=== PATIENT | female | born 1960 | race Caucasian/White ===

== ENCOUNTER → 2018-02-15 16:24 | Outpatient (CLI) | payer OTHER, SELFPAY ==
--- NOTE | 2018-02-15 16:29 | DI.RAD.S_ITS ---
PROCEDURE: XR HIP W PEL IF DONE LT 2V INDICATIONS: LUMBAGO WITH SCIATICA LEFT TECHNIQUE: AP pelvis with lateral view(s) of the left hip(s). COMPARISON: [facility], , XR LUMBAR SPINE 2-3V, 02/15/2018, 16:11. FINDINGS: Bones: No fractures or dislocations. Pelvic ring appears intact. No suspicious bony lesions. Minimal degenerative change involving the lower lumbar spine. Soft tissues: The visualized bowel gas pattern is normal. No suspicious soft tissue calcifications. IMPRESSION: Normal appearance of the hip joints bilaterally. Dictated by: Hugh Dong [facility] Interpreted: Mahesh Samaniego MD on 02/15/2018 at 16:47 Approved by: Mahesh Samaniego M.D. on 02/16/2018 at 8:11
--- NOTE | 2018-02-15 16:29 | DI.RAD.S_ITS ---
PROCEDURE: XR LUMBAR SPINE 2-3V INDICATIONS: LUMBAGO WITH SCIATICA LEFT TECHNIQUE: 3 views of the lumbar spine were acquired. COMPARISON: None. FINDINGS: Bones: 5 [id number] vertebrae are present. Trace spondylolisthesis L4-L5. Mild early multilevel disc degeneration lower lumbar spine facet joint arthropathy. No vertebral body compression fractures. No suspicious bony lesions. Soft tissues: Overlying bowel gas pattern is normal. No suspicious soft tissue calcifications. IMPRESSION: Mild multilevel degenerative change. Dictated by: Hugh Dong [facility] Interpreted: Mahesh Samaniego MD on 02/15/2018 at 16:46 Approved by: Mahesh Samaniego M.D. on 02/15/2018 at 16:48
== END ==
PROVIDERS: Family Provider Physician Assistant; PCP Physician Assistant; Visit Provider Physician Assistant
DX: M51.16 Intervertebral disc disorders with radiculopathy, lumbar region (principal)
CPT/HCPCS: 72100; 73502

== ENCOUNTER → 2018-03-04 14:24 | Outpatient (CLI) | payer OTHER, SELFPAY ==
--- NOTE | 2018-03-04 | DI.RAD.S_ITS ---
PROCEDURE: XR HAND RT 2V INDICATIONS: PAIN TECHNIQUE: 3 views of the hand(s) acquired. COMPARISON: [facility], HAND 3V RIGHT, 05/12/2008, 10:37. [facility], WRIST MINIMUM 3 VIEWS RIGHT, 05/27/2009, 13:18. FINDINGS: Bones: No fractures or dislocations. Carpal bones are normally aligned. No suspicious bony lesions. Mild degenerative joint disease at the fourth and fifth proximal interphalangeal joints and the fifth distal interphalangeal joint with joint space narrowing and osteophyte palpation. No bony erosions. Soft tissues: No suspicious soft tissue calcifications. IMPRESSION: Mild degenerative joint disease. No bony erosions. Dictated by: Jessi Nieves M.D. on 03/04/2018 at 15:31 Approved by: Jessi Nieves M.D. on 03/04/2018 at 15:33
--- NOTE | 2018-03-04 | DI.RAD.S_ITS ---
PROCEDURE: XR HAND LT 2V INDICATIONS: PAIN TECHNIQUE: 3 views of the hand(s) acquired. COMPARISON: [facility], , HAND 3V RIGHT, 05/12/2008, 10:37. [facility], , XR HAND RT 2V, 03/04/2018, 14:16. FINDINGS: Bones: No fractures or dislocations. Carpal bones are normally aligned. No suspicious bony lesions. There is mild to moderate degenerative joint disease with joint space narrowing and osteophyte formation involving multiple interphalangeal joints, most pronounced at the fifth proximal and distal interphalangeal joints. No bony erosions. Soft tissues: No suspicious soft tissue calcifications. IMPRESSION: Mild/moderate degenerative joint disease. No bony erosions. Dictated by: Jessi Nieves M.D. on 03/04/2018 at 15:28 Approved by: Jessi Nieves M.D. on 03/04/2018 at 15:31
[2018-03-06 11:32] LABS: CCP Antibody (IgG) < 16 Units (< 20)
[2018-03-06 16:24] LABS: Immunoglobulin A 72 mg/dL (81-463)
== END ==
PROVIDERS: Family Provider Physician Assistant; PCP Physician Assistant; Visit Provider Physician Assistant
DX: M13.0 Polyarthritis, unspecified (principal)
CPT/HCPCS: 36415; 73130; 82784; 83516

== ENCOUNTER → 2018-05-04 08:00 | Outpatient (CLI) | payer OTHER, SELFPAY ==
--- NOTE | 2018-05-04 | DI.US.S_ITS ---
PROCEDURE: US CAROTID DOPPLER BI INDICATIONS: STENOSIS OF CAROTID ARTERIES TECHNIQUE: Color and pulse Doppler interrogation was performed of both carotid systems, with image documentation and velocity measurements. COMPARISON: None. FINDINGS: Stenosis calculations are based on SRU (Society of Radi[employer] in Ultrasound) criteria. Right side: Brachial blood pressure: 134/82 mm Hg. Common carotid artery peak systolic velocity: 80 cm/sec. Internal carotid artery peak systolic velocity: 79 cm/sec. Internal carotid artery end diastolic velocity: 35 cm/sec. External carotid artery peak systolic velocity: 322 cm/sec. ICA/CCA peak systolic ratio: 1.0. Vera scale imaging description: Moderate scattered plaque. Percent internal carotid artery stenosis: Less than 50%. Vertebral artery: Flow direction is antegrade. Left side: Brachial blood pressure: 153/84 mm Hg. Common carotid artery peak systolic velocity: 100 cm/sec. Internal carotid artery peak systolic velocity: 82 cm/sec. Internal carotid artery end diastolic velocity: 40 cm/sec. External carotid artery peak systolic velocity: 82 cm/sec. ICA/CCA peak systolic ratio: 0.8. Vera scale imaging description: Mild scattered plaque. Percent internal carotid artery stenosis: Less than 50%. Vertebral artery: Flow direction is antegrade. IMPRESSION: Less than 50% bilateral internal carotid artery stenosis. Dictated by: Hugh Dong [facility] Interpreted: Romero Guzman MD on 05/04/2018 at 10:38 Approved by: Romero Guzman M.D. on 05/05/2018 at 17:24
== END ==
PROVIDERS: Family Provider Physician Assistant; PCP Physician Assistant; Visit Provider Student in an Organized Health Care Education/Training Program
DX: I65.23 Occlusion and stenosis of bilateral carotid arteries (principal)
CPT/HCPCS: 93880

== ENCOUNTER 2018-09-22 13:09 | Observation (INO) | payer OTHER, SELFPAY ==
[2018-09-22] VITALS (9 sets, daily range): BP systolic 132–164; BP diastolic 57–83; PULSE 71–88; RESP 12–19; TEMP 37.1; O2SAT 96–100; BMI 42.0
--- NOTE | 2018-09-22 13:15 | ED.CHESTPAIN ---
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 tracings: available for review Interpretation: Normal sinus rhythm rate [address] changes no T-wave inversions similar to previous EKG in 2015 [facility] Narrative Medical decision making narrative: I called and updated hospitalist on CT results. Patient is not having large vessel occlusion signs or symptoms of a CVA. She is not a tPA or thrombectomy candidate. She is here mostly for some chest discomfort. However head CT does show possible pontine infarct both noncontrast head CT and CTA. She also had some speech difficulty earlier in the day for brief period of time which is now resolved. Hospitalist agrees with observation. Discharge Plan Departure Patient Disposition: Admitted As Inpatient Clinical Impression: Acute chest wall pain, Brain TIA Discharge Date/Time: 09/23/18 00:16 Interventions: ED Discharge Assessment Last Done: 09/23/18 00:15 Admit Date/Time: 09/22/18 22:39 Admit Provider: Macario Weldon <Clotilde Odom DO - Last Filed: 09/23/18 00:52> Cosign ED Attending Davidature Attestation: I was immediately available in the department for consultation. Documentation has been reviewed. I agree with assessment and plan.
--- NOTE | 2018-09-22 13:22 | DI.RAD.S_ITS ---
PROCEDURE: XR CHEST 1V INDICATIONS: Chest pain TECHNIQUE: One view of the chest was acquired. COMPARISON: [facility], , XR CXR 2 VIEW, 01/30/2005, 9:21. FINDINGS: Surgical changes and devices: None. Lungs and pleura: Trace pulmonary radiopacities are present at the left lung base. The lungs are otherwise clear. Mediastinum: Mediastinal contours appear normal. Heart size is normal. Bones and chest wall: No suspicious bony lesions. Overlying soft tissues appear unremarkable. IMPRESSION: Trace left basilar pulmonary radiopacities. Differential considerations include atelectasis, aspiration, infection. Short interval followup is recommended with resolution of the patient's symptoms to ensure there is no underlying pulmonary pathology. Dictated by: Kandy Caballero M.D. on 09/22/2018 at 14:02 Approved by: Kandy Caballero M.D. on 09/22/2018 at 14:02
--- NOTE | 2018-09-22 14:05 | ED_ITS ---
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 follows: Prior ECG tracings: available for review Interpretation: Normal sinus rhythm rate [address] changes no T-wave inversions similar to previous EKG in 2015 [facility] Narrative Medical decision making narrative: I called and updated hospitalist on CT results. Patient is not having large vessel occlusion signs or symptoms of a CVA. She is not a tPA or thrombectomy candidate. She is here mostly for some chest discomfort. However head CT does show possible pontine infarct both noncontrast head CT and CTA. She also had some speech difficulty earlier in the day for brief period of time which is now resolved. Hospitalist agrees with observation. Discharge Plan Departure Patient Disposition: Admitted As Inpatient Clinical Impression: Acute chest wall pain, Brain TIA Discharge Date/Time: 09/23/18 00:16 Interventions: ED Discharge Assessment Last Done: 09/23/18 00:15 Admit Date/Time: 09/22/18 22:39 Admit Provider: Macario Weldon <Clotilde Odom DO - Last Filed: 09/23/18 00:52> Cosign ED Attending Davidature Attestation: I was immediately available in the department for consultation. Documentation has been reviewed. I agree with assessment and plan.
--- NOTE | 2018-09-22 14:33 | PC.NURSE ---
with u/s guided iv start
--- NOTE | 2018-09-22 14:34 | PC.NURSE ---
report while working this morning at 1030am, bending, developed sudden onset of left below the breast sharp pain, worsen with deep breathing reports left carotid 90% , taking aspirin at this time. denies long travel.
[2018-09-22 14:36] LABS: Add Manual Diff / Slide Review NO; Basophils Absolute Auto 0 /uL (0-100); Basophils Percent Auto 0.6 % (0-2); Eosinophils Absolute Auto 100 /uL (0-450); Eosinophils Percent Auto 1.4 % (2-4); Hematocrit 40.7 % (36-46); Hemoglobin 13.4 g/dL (12.0-16.0); Lymphocytes Absolute Auto 1700 /uL (1100-4500); Lymphocytes Percent Auto 24.2 % (25-40); Mean Corpuscular Hemoglobin 28.6 PG (26-34); Mean Corpuscular Volume 86.8 fL (80-100); Monocytes Absolute Auto 500 /uL (0-900); Monocytes Percent Auto 7.8 % (3-14); Neutrophils Absolute Auto 4600 /uL (1500-7000); Platelet Count 241 X10^3/uL (150-400); Red Blood Cell Count 4.69 X10^6/uL (4.0-5.2); Red Cell Distribution Width 13.3 % (11.6-14.8)
[2018-09-22 14:50] LABS: D Dimer 241 ng/mL (<230)
[2018-09-22 14:55] LABS: Alanine Aminotransferase 32 IU/L (9-52); Albumin 4.7 g/dL (3.5-5.0); Albumin Globulin Ratio 1.6 (1.0-2.8); Alkaline Phosphatase 67 U/L (38-126); Aspartate Aminotransferase 28 IU/L (14-36); BUN Creatinine Ratio 37.1 (6-22); Bilirubin Total 0.4 mg/dL (0.2-1.3); Blood Urea Nitrogen 26 mg/dL (7-17); Calcium 9.6 mg/dL (8.4-10.2); Carbon Dioxide 29 mmol/L (22-32); Chloride 102 mmol/L (98-107); Creatine Kinase 145 U/L (30-135); Estimated Glomerular Filt Rate > 60.0 mL/min (>60); Globulin 2.9 g/dL (1.7-4.1); Glucose 114 mg/dL (70-100); HEMOLYSIS 19 (0-50); Lipase 45 U/L (23-300); Potassium 4.5 mmol/L (3.4-5.1); Sodium 140 mmol/L (137-145); Total Protein 7.6 g/dL (6.3-8.2)
[2018-09-22 15:08] LABS: Troponin I < 0.012 ng/mL (0.01-0.034)
[2018-09-22 15:10] LABS: CKMB % Relative Index 1.8 % (1.5-5.0); Creatine Kinase MB 2.66 ng/mL (<2.37)
[2018-09-22 17:13] LABS: Troponin I < 0.012 ng/mL (0.01-0.034)
--- NOTE | 2018-09-22 17:35 | DI.CT.S_ITS ---
PROCEDURE: CT HEAD/BRAIN WO CON INDICATIONS: Complaint of difficulty forming words earlier today TECHNIQUE: Noncontrast 4.5 mm thick angled axial sections acquired from the foramen magnum to the vertex, with coronal and sagittal reformats. For radiation dose reduction, the following was used: automated exposure control, adjustment of mA and/or kV according to patient size. COMPARISON: [facility], CT, IVP (ABD & PEL WWO CONTRAST), 11/02/2012, 9:52. FINDINGS: Image quality: Excellent. CSF spaces: Basal cisterns are patent. No extra-axial fluid collections. Ventricles are normal in size and shape. Brain: No midline shift. No intracranial masses or hemorrhage. There is focal bandlike hypoattenuation of the sergey. Vera-white matter interface is otherwise normal. Intracranial vascular calcifications are noted. Skull and face: Calvarium and visualized facial bones are intact. There is a possible 1.8 cm right frontal soft tissue fat-attenuation mass, which may represent a lipoma. Sinuses: Visualized sinuses and mastoids are clear. IMPRESSION: Bandlike hypoattenuation of the sergey, which may be artifactual secondary to streak artifact from adjacent bony structures versus a pontine infarct. Clinical correlation recommended. Consider followup brain MRI if there is continued clinical concern. Dictated by: Mateo Owen M.D. on 09/22/2018 at 19:08 Approved by: Mateo Owen M.D. on 09/22/2018 at 19:16
--- NOTE | 2018-09-22 18:08 | PC.NURSE ---
fast neuro exam negative at this time
--- NOTE | 2018-09-22 20:02 | DI.CT.S_ITS ---
PROCEDURE: CT ANGIO HEAD AND NECK INDICATIONS: 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 After the administration of intravenous contrast, 1 mm thick sections acquired from the aortic arch through the Resighini of Valentine. Post-contrast 4.5 mm thick sections then re-acquired from the foramen magnum to the vertex. 3-dimensional mbwzshf-rklhwzzgm-dhlqyrtwlo (MIP) and/or volume rendering reformats were acquired of the central intracranial vasculature and neck separately. COMPARISON: [facility], CT, CT HEAD/BRAIN WO CON, 09/22/2018, 18:05. [facility], CT, IVP (ABD & PEL WWO CONTRAST), 11/02/2012, 9:52. FINDINGS: Image quality: Excellent. BRAIN: CSF spaces: Ventricles are normal in size and shape. Basal cisterns are patent. No extra-axial fluid collections. Brain: No midline shift. No intracranial bleeds or masses. There is focal bandlike hypoattenuation of the sergey. Intracranial vascular calcifications are noted. Skull and face: Calvarium and facial bones appear intact, without suspicious lesions. Orbits appear normal. There is a possible 1.8 cm right frontal soft tissue fat-attenuation mass, which may represent a lipoma. Sinuses: Sinuses and mastoids are clear. HEAD CT ANGIOGRAPHY: Anterior circulation: Intracranial internal carotid arteries are normal in size and flow. The flow within the paired anterior cerebral arteries is normal and symmetric. The flow within the middle cerebral arteries is normal and symmetric. The anterior communicating artery is seen. No aneurysms are seen. Posterior circulation: Visualized portions of the vertebral arteries demonstrate normal caliber, and join to form a normal appearing basilar artery. No aneurysms are seen. There is poor opacification of the origin of the right posterior cerebral artery from the basilar artery, without definite communication. 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 The origins of the common carotid arteries appear patent. The common carotid arteries demonstrate normal caliber and courses. The bifurcation regions are both patent, with mild calcified and noncalcified plaque noted bilaterally. The internal carotid arteries demonstrate normal calibers and courses. Posterior circulation: The origins of the vertebral arteries both appear widely patent. The more superior extracranial portions of both vertebral arteries also demonstrate normal courses and calibers. They join to form a normal appearing basilar artery. Soft tissues: 4 mm noncalcified pulmonary nodule in the anterior right upper lobe noted. Bones: There are mild multilevel degenerative changes of the cervical spine. There is straightening of the normal cervical lordosis. 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 Bandlike hypoattenuation of the sergey, which may be artifactual secondary to streak artifact from adjacent bony structures versus a pontine infarct. Clinical correlation recommended. Consider followup brain MRI if there is continued clinical concern. 2. 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 3. Mild calcified and noncalcified plaque of the carotid bifurcations bilaterally. The bilateral cervical carotid and vertebral arteries appear patent. 4. Poor opacification of the origin of the right posterior cerebral artery from the basilar artery, without definite communication. This may be congenital/developmental with the right posterior cerebral artery receiving flow from the right posterior communicating artery, or represent an age-indeterminate occlusion. 5. 4 mm noncalcified pulmonary nodule of the anterior right upper lobe. Consider followup CT of the chest if the patient has a history of risk factors for development of lung malignancy such as a history of smoking. Any quantitative measurements of stenosis were performed using NASCET criteria. Dictated by: Mateo Owen M.D. on 09/22/2018 at 22:01 Approved by: Mateo Owen M.D. on 09/22/2018 at 22:24
--- NOTE | 2018-09-22 23:27 | P.HP_ITS ---
History of Present Illness Date Patient Seen: 09/22/18 Time Patient Seen: 23:27 Chief complaint: Chest Pain Narrative: The patient is a 58-year-old female who presented to the ED on 09/22/2018 at approximately 1314 with sudden onset of chest pain. Symptom onset is acute, initially noted in the 1000 hour. At time of the event patient was at work. 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 Time of the event she was moving tables and are changing the trash. Patient does not note this to be a particularly strenuous activity. Pain is localized to the left aspect of the chest and was described as sharp and stabbing. It did not radiate to the back, extremities, neck or jaw. In the following hour the pain has worsened to the degree that was debilitating to the patient and she was not able to continue working. She felt short of breath at rest and with exertion. The pain was worsened with deep inspiration. There was some degree of disorientation. There was no change in vision, palpitations , dizziness, lightheadedness, abdominal pain, nausea, vomiting or diaphoresis. Patient then was evaluated by the school is a nurse, she recalls two BP readings : 170/? and 220/114. At that point EMS was summoned and patient was transferred to the ED for further evaluation. It is of importance to note, that earlier in the day at approximately 0800 the patient experienced an episode of dysarthria / slurred speech. It is not clear how long the episode lasted, but at least 1-2 minutes as patient decided not to talk altogether thereafter. Patient notes experiencing similar event in April of 2018. She reports having imaging of her carotid arteries and notes being told of a 90% stenosis of left ICA and 50% stenosis of the ICA. At that time she was placed on aspirin and statin therapy with which she has been compliant. Known to have history of HTN with reported SBP range in the 130/80 mmHg at home. Admits to snoring, but no prior evaluation for SONIA. In the past has had a stress test (30 yrs ago, for reasons she does not recall). No h/o an echocardiogram. Denies h/o heart disease, lung disease, stroke, or blood clots. 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 Tobacco dependence, currently less than half pack week. Denies alcohol and recreational drug use. Lives independently. Has 2 daughters. ED Work-UP CT head: band-like attenuation of the sergey, which may be artifactual secondary to streak artifact from adjacent bony structures versus a pontine infarct. CTA Head / Neck: - Bandlike hypoattenuation of the sergey, which may be artifactual secondary to streak artifact from adjacent bony structures versus a pontine infarct. Clinical correlation recommended. Consider followup brain MRI if there is continued clinical concern. 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 - Mild calcified and noncalcified plaque of the carotid bifurcations bilaterally. The bilateral cervical carotid and vertebral arteries appear patent. - Poor opacification of the origin of the right posterior cerebral artery from the basilar artery, without definite communication. This may be congenital/ developmental with the right posterior cerebral artery receiving flow from the right posterior communicating artery, or represent an age-indeterminate occlusion. - 4 mm non-calcified pulmonary nodule of the anterior right upper lobe. Consider followup CT of the chest if the patient has a history of risk factors for development of lung malignancy such as a history of smoking. Patient History Family & Social History Family History: Reviewed 09/23/18 by ASHLEY Jenkins Tobacco & Substance use: Smoking Status Current some day smoker Substance Use Type does not use Meds Home Medications Medication Instructions Recorded Confirmed Type bupropion HCl 450 mg PO QAM #0 03/14/10 09/22/18 History fluoxetine 60 mg PO DAILY #0 03/14/10 09/22/18 History lisinopril 10 mg PO DAILY #0 03/14/10 09/22/18 History omeprazole 20 mg PO DAILY #0 03/14/10 09/22/18 History albuterol sulfate [ProAir HFA] 1 puff INHALATION PRN PRN 09/22/18 09/22/18 History beclomethasone dipropionate [Qvar 1 puff INHALATION DIRECTED 09/22/18 History RediHaler] cyclobenzaprine 10 mg PO Q8H 09/22/18 09/22/18 History fexofenadine 180 mg PO DAILY 09/22/18 09/22/18 History fluticasone 1 spray INTRANASAL Q4-6H 09/22/18 09/22/18 History gabapentin 300 mg PO TID 09/22/18 09/22/18 History hydrocodone-acetaminophen 1 tab PO Q6H PRN 09/22/18 09/22/18 History lorazepam 0.5 - 2 mg PO QPM PRN 09/22/18 09/22/18 History meloxicam 15 mg PO DAILY PRN 09/22/18 09/22/18 History trazodone 50 - 100 mg PO BEDTIME PRN 09/22/18 09/22/18 History Allergies Allergy/AdvReac Type Severity Reaction Status Date / Time No Known Allergies Allergy Uncoded 12/16/17 12:16 Review of Systems Review of Systems All systems reviewed & are unremarkable except as noted in HPI and below Exam Vital Signs (past 8 hours): - 09/22/18 15:30 09/22/18 17:08 09/22/18 19:10 Pulse Rate 78 75 74 Respiratory Rate 16 19 17 Blood Pressure [Right Arm] 146/57 H 141/57 H 152/60 H Pulse Oximetry 96 97 97 09/22/18 20:00 09/22/18 21:56 09/22/18 23:05 Pulse Rate 78 74 71 Respiratory Rate 15 16 17 Blood Pressure [Right Arm] 154/65 H 146/59 H 133/67 Pulse Oximetry 100 99 Oxygen Delivery Method Room Air Narrative Exam Narrative: Constitutional: NAD Neurologic: AOx3, no focal neurological deficits. NIHSS 0 Head: NC, AT Eyes: PERRL, EOMI, no icterus Ears: external ears normal Nose: external nose normal, no rhinorrhea or epistaxis Throat: MMM, oropharynx w/o exudate Neck: no masses, lymphadenopathy, or JVD Chest / Respiratory: equal chest rise, unlabored respiratory effort, no tachypnea, diminished bases Heart / CV: S1S2, no murmur Abdomen / GI: round, central obesity, NT, ND, + BS, no organomegaly : no suprapubic tenderness, no CVA Peripheral / Vascular: warm to touch, DP and PT pulses palpable, no edema Musc: full ROM of upper and lower extremities, adequate muscle tone and bulk Skin: no ecchymosis or suspicious lesions / ulcers Objective Labs Result Diagrams: 09/22/18 14:25 09/23/18 03:22 Labs: Laboratory Results - last 24 hr 09/22/18 09/22/18 09/22/18 14:25 14:25 14:25 WBC 7.0 RBC 4.69 Hgb 13.4 Hct 40.7 MCV 86.8 MCH 28.6 MCHC 33.0 RDW 13.3 Plt Count 241 Neut % (Auto) 66.0 Lymph % (Auto) 24.2 L Barber % (Auto) 7.8 Eos % (Auto) 1.4 L Baso % (Auto) 0.6 Neut # (Auto) 4600 Lymph # (Auto) 1700 Barber # (Auto) 500 Eos # (Auto) 100 Baso # (Auto) 0 D-Dimer 241 H Sodium 140 Potassium 4.5 Chloride 102 Carbon Dioxide 29 BUN 26 H Creatinine 0.70 Estimated GFR > 60.0 BUN/Creatinine Ratio 37.1 H Glucose 114 H Calcium 9.6 Total Bilirubin 0.4 AST 28 ALT 32 Alkaline Phosphatase 67 Total Creatine Kinase 145 H CK-MB (CK-2) 2.66 H CK-MB (CK-2) Rel Index 1.8 Troponin I < 0.012 Total Protein 7.6 Albumin 4.7 Globulin 2.9 Albumin/Globulin Ratio 1.6 Lipase 45 09/22/18 16:39 WBC RBC Hgb Hct MCV MCH MCHC RDW Plt Count Neut % (Auto) Lymph % (Auto) Barber % (Auto) Eos % (Auto) Baso % (Auto) Neut # (Auto) Lymph # (Auto) Barber # (Auto) Eos # (Auto) Baso # (Auto) D-Dimer Sodium Potassium Chloride Carbon Dioxide BUN Creatinine Estimated GFR BUN/Creatinine Ratio Glucose Calcium Total Bilirubin AST ALT Alkaline Phosphatase Total Creatine Kinase CK-MB (CK-2) CK-MB (CK-2) Rel Index Troponin I < 0.012 Total Protein Albumin Globulin Albumin/Globulin Ratio Lipase Assessment & Plan Plan: Assessment/Plan Narrative: TIA Suspected in the setting of hypertensive urgency vs. carotid artery disease CT Head: band-like hypo-attenuation of the sergey, which may be artefactual secondary to streak artifact from adjacent bony structures vs. a pontine infarct. Clinical correlation recommended. Consider follow-up brain MRI if there is continued clinical concern. - NIHSS QShift - MR Stroke Protocol for MRI of head in am - Neuro checks per protocol - Echo w/ bubble study in am - Passed swallow study in ED, may advance to cardiac diet - Risk Stratify: A1C, FLP (goal LDL < 70) - ASA 324 mg now, then 81 mg QD - Stroke Education Acute Chest Pain RF: HTN, morbid obesity (BMI 40.9), increased age, smoking, and FHx of heart disease EKG non-ischemic. Trop 0.012, CK-MB 2.66 - Tele monitoring - Continue trending trop x3 - Risk Stratify: HLD, A1C - Echo in am - Patient would benefit from an outpatient stress test - No NSAIDS, hold [employer] meloxicam Hypertension BP elevated on admission. Patient notes to be well controlled in ED. - Trend BP - SBP goal < 130 and DBP goal < 90 - Resume [employer]ACHINE [employer] anti-hypertensive, lisinopril - Patient would benefit from outpatient SONIA evaluation Abnormal CXR CXR w/ non-specific findings of trace left basilar pulmonary opacities. In the setting of hypertensive urgency, neurological symptoms, CP, pleurisy, mildly elevated D-Dimer and CK-MB no tachycardia, hypotension, syncope, JVD, hemoptysis, unilateral leg swelling / pain No prior h/o PE/DVT. No recent trauma or surgery. Not on HRT. No personal or family h/o cancer. DDx of pulmonary embolism RF: smoking, morbid obesity, increased age Well?s Criteria for PE, score 3 (PE is #1 dx or equally likely), at moderate risk for PE PERC Rule, positive / score 1 (age), cannot r/o PE - Consider CTA of chest to r/o PE - Echo, already ordered will help to evaluate for RV dysfunction Right upper lobe pulmonary nodule, noncalcified, incidental finding Patient has a history tobacco dependence. Current some day smoker. - Consider CT of the chest to rule out underlying malignancy Carotid Artery Stenosis - CTA Head / Neck pending, to be reviewed - Continue w/ aggressive risk factor modification Tobacco Dependence - Nicotine patch - Smoking cessation education Anxiety / Depression, controlled - Resume [employer] buprion, fluoxetine, and trazadone Full code. Patient does not have an advanced directive. Designates daughters as surrogate decision makers in an event patient is unable to make decisions on her own.
[2018-09-23] VITALS (10 sets, daily range): BP systolic 131–155; BP diastolic 54–94; PULSE 68–81; RESP 15–18; TEMP 36.4–36.8; O2SAT 95–99; BMI 40.9
--- NOTE | 2018-09-23 | DI.ECHO.S_ITS ---
[facility]---------+ [facility] +---------+ : : [address] : : [place], [place] : : : : [id number] : : : : Phone: [phone] Echocardiogram Report + + :Name: PARAMJIT OGLESBY Study Date: 09/23/2018 Height: 62 in : :[facility] Weight: 230 lb: : Gender: Female BSA: 2.0 m2 : :: 1960 Age: 58 yrs : :Reason For Study: TIA : :Ordering Physician: Aden : :Hospitalist Performed By: Josy Walton : :Referring: MARGARITA CHILDS : + + Interpretation Summary The study quality was technically difficult. The ejection fraction is estimated to be 60-65%. There are no obvious focal wall motion abnormalities noted but poor endocardial definition reduces the sensitivity for the detection of such. No obvious bubble contrast evidence for shunt. (TDS) There is no significant valvular heart disease. Procedure: A two-dimensional transthoracic echocardiogram with color flow and Doppler was performed. The patient had an echocardiogram, but there is no comparison study available. A saline contrast injection was performed to assess for cardiac shunting. The study quality was technically difficult. The patient was in normal sinus rhythm during the exam. Left Ventricle: The left ventricle is normal in size, wall thickness, and systolic function without any focal wall motion abnormalities. There is no ventricular septal defect visualized. The ejection fraction is estimated to be 60-65%. There are no obvious focal wall motion abnormalities noted but poor endocardial definition reduces the sensitivity for the detection of such. Diastolic parameters suggest a relaxation abnormality of the left ventricle, consistent with probable normal filling pressures. Right Ventricle: The right ventricle grossly appears normal in size with probable normal systolic function. Atria: Both atria are normal in size. There is no Doppler evidence for an interatrial shunt. No obvious bubble contrast evidence for shunt.TDS. Mitral Valve: The mitral valve is normal in structure and function. There is trace mitral regurgitation. Aortic Valve: The aortic valve is trileaflet. The aortic valve opens well. No aortic regurgitation is present. Tricuspid Valve: There is a trace or physiologic amount of tricuspid regurgitation. Right ventricular systolic pressure is estimated to be 18 mmHg plus the clinically estimated CVP which cannot be estimated on this exam. Pulmonic Valve: The pulmonic valve is not well visualized. Great Vessels: The aortic root is normal size. The ascending aorta is normal in size. The aortic arch is normal in size. The inferior vena cava was not visualized. Pericardium/ Pleura There is no pericardial effusion. MMode/2D Measurements & Calculations LVIDd: 4.1 cm LVOT diam: 1.9 cm LVIDs: 2.6 cm Ao root diam: 2.5 cm FS: 36.4 % asc Aorta Diam: 2.8 cm EPSS: 0.32 cm Ao Arch Diam (Prox Trans): 2.6 cm IVSd: 0.90 cm LVPWd: 1.1 cm LV shultz. diameter/BSA (cm/m^2): 2.0 LV sys. diameter/BSA (cm/m^2): 1.3 LA dimension: 5.1 cm RA long axis: 4.3 cm LA A2 area: 19.2 cm2 RA area: 14.9 cm2 LA A4 area: 17.8 cm2 RA vol: 43.8 ml LA length (vol): 5.1 cm RA : 21.6 ml/m2 LA vol: 57.0 ml LA vol index: 28.1 ml/m2 Doppler Measurements & Calculations Ao V2 max: 194.3 cm/sec LVOT Max Manish: 134.0 cm/sec Ao V2 mean: 111.2 cm/sec LV V1 max P.2 mmHg Ao max P.1 mmHg LV V1 VTI: 27.8 cm Ao mean P.2 mmHg LUISA(I,D): 2.4 cm2 Ao V2 VTI: 35.1 cm LUISA(V,D): 2.1 cm2 sev ratio: 0.79 LUISA indexed to BSA (cm^2/m^2): 1.2 MV E max manish: 59.9 cm/sec TR max manish: 211.7 cm/sec MV A max manish: 88.9 cm/sec TR max P.9 mmHg MV E/A: 0.67 PA V2 max: 90.7 cm/sec Med Peak E' Manish: 8.1 cm/sec PA V2 mean: 67.6 cm/sec E/E' med: 7.4 PA mean P.0 mmHg Lat Peak E' Manish: 10.7 cm/sec PA Accel Time: 0.08 sec E/E' lat: 5.6 E/e' average: 6.5 MV dec time: 0.24 sec MV P1/2t: 69.8 msec MV P1/2t max manish: 59.6 cm/sec SV(LVOT): 82.7 ml MVA(P1/2t): 3.2 cm2 Reading Physician:09:59 AM
--- NOTE | 2018-09-23 | DI.MRI.S_ITS ---
PROCEDURE: MR STROKE Pre- and post-contrast brain MRI, non-contrast brain MR angiogram, pre- and postcontrast neck MR angiogram INDICATIONS: Neuro symptoms. Speech difficulties TECHNIQUE: Brain: Noncontrast axial T1 spin echo, axial T2 fast spin echo, sagittal and axial FLAIR, coronal T2 fast spin echo, axial gradient echo, axial diffusion and ADC through the brain. After the administration of contrast, axial 3D VIBE of the cranial vasculature and brain. Brain MRA: Non-contrast 3-D time of flight MR angiogram, with multiple wzyphvc-gcqlyovdv-afojejuuyj (MIP) reformats performed. Neck MRA: Axial and sagittal TruFISP through the neck. Coronal dynamic MR angiogram during administration of contrast in the arterial and venous phases, with 3-dimenstional ouzbnva-urqrmhzwc-hyimuxubok (MIP) reformats constructed from subtraction images. COMPARISON: [facility], CT, CT HEAD/BRAIN WO CON, 09/22/2018, 18:05. [facility], CT, CT ANGIO HEAD AND NECK, 09/22/2018, 20:50. FINDINGS: Image quality: Excellent. BRAIN: CSF spaces: Ventricles are normal in size and shape. Basal cisterns are patent. No extra-axial fluid collections. Brain: No intracranial bleeds or mass effects. Vera-white matter interface is normal. Diffusion weighted images show no acute ischemic insults. Brainstem appears normal. Normal intravascular flow voids are present. Minimal periventricular and subcortical white matter chronic microvascular ischemic changes of aging. No GRE weighted abnormalities identified in the brain parenchyma. No abnormal intracranial enhancement. Skull and face: Calvarial marrow signal is normal. Orbits appear normal. Sinuses: Sinuses and mastoids are clear. BRAIN MR ANGIOGRAM: Anterior circulation: Intracranial internal carotid arteries are normal in enhancement. Mild atherosclerotic irregularity noted in the cavernous segments of the internal carotid arteries bilaterally with mild multifocal stenoses. The flow within the paired anterior cerebral arteries is normal and symmetric. The flow within the middle cerebral arteries is normal and symmetric. The anterior communicating artery is seen. No stenoses, occlusions, or aneurysms. Posterior circulation: The visualized portions of the vertebral arteries demonstrate normal caliber, and join to form a normal appearing basilar artery. The flow within the posterior cerebral arteries is normal and symmetric. The posterior cerebral arteries have origins which is a congenital anatomic variant. No stenoses, occlusions, or aneurysms. NECK MR ANGIOGRAM: Carotids: Great vessels demonstrate bovine variant anatomy as they arise from the aortic arch. The origins of the common carotid arteries appear patent. The calibers and courses of both common carotid arteries are normal. Minimal atherosclerotic irregularity noted in the origins of the internal carotid arteries bilaterally which does not cause measurable stenosis. Posterior circulation: The origins of the vertebral arteries appear patent. More superior portions of both vertebral arteries demonstrate normal course and caliber, and join to form a normal appearing basilar artery. Miscellaneous: Subclavian arteries appear patent. Pre-contrast images through the neck show no soft tissue abnormalities. IMPRESSION: BRAIN MRI: 1. No acute intracranial disease process. 2. No areas of acute or chronic infarction. 3. No abnormal intracranial mass or or suspicious postcontrast enhancement. 4. Minimal periventricular and subcortical white matter chronic microvascular ischemic changes. BRAIN MR ANGIOGRAM: 1. Mild atherosclerotic irregularity involving the cavernous segments of the internal carotid arteries bilaterally causing mild multifocal stenoses. 2. Otherwise, normal MR angiogram of the head with no hemodynamically significant vascular stenosis or large vessel occlusion. NECK MR ANGIOGRAM: 1. Minimal atherosclerotic irregularity involving the origins of the internal carotid arteries without visible stenosis. 2. Vertebral arteries are fully patent. Dictated by: Jennifer Baker MD, PhD on 09/23/2018 at 15:41 Approved by: Jennifer Baker MD, PhD on 09/23/2018 at 15:56
--- NOTE | 2018-09-23 | DI.US.S_ITS ---
PROCEDURE: US PERIPH VENOUS LOW EXTREM LT INDICATIONS: left calf pain, CVA, CP TECHNIQUE: Real-time imaging, as well as color and pulse Doppler interrogation, were performed of the lower extremity deep veins from the inguinal ligament to the popliteal fossa. COMPARISON: [facility], , US PERIPHERAL VENOUS LOWER EXT LT, 03/30/2000, 9:55. FINDINGS: The deep veins are normally compressible, and free of intraluminal thrombus. Color and pulse Doppler demonstrate normal phasic intraluminal flow. There is normal augmentation response to distal compression maneuver. IMPRESSION: Negative for deep venous thrombosis. Dictated by: Jadiel Zuñiga M.D. on 09/23/2018 at 15:49 Approved by: Jadiel Zuñiga M.D. on 09/23/2018 at 15:49
[2018-09-23] MEDS: SODIUM CHLORIDE 0.9% 1,000 ML 75 ML IV ×2 (00:54→14:35)
[2018-09-23] MEDS: ASPIRIN EC 325 MG TABLET PO (00:57)
[2018-09-23 01:03] LABS: B Type Natriuretic Peptide < 100 (<100)
[2018-09-23 01:13] LABS: Troponin I < 0.012 ng/mL (0.01-0.034)
--- NOTE | 2018-09-23 01:25 | PC.ADMIT ---
[email or web address] [facility] Admission Note: 0005 Patient admitted to room 216 from ER per stretcher but walked from stretcher to bed. Is alert and oriented with no neurologic deficits; NIH 0. Breath sounds CTA with RA sat of 99%. HRR. Denies nausea. BT present and abdomen is soft. Denies dysuria, frequency, urgency or incontinence. Denies pain at present time. Ambulates independently and is steady on feet. Old bruises noted on bilateral LE. Dull red discolored skin in abdominal pannus. No open, red or rashy areas noted. Patient oriented to room and bed controls. Questions asked/answered. Discussed current plan of care for this shift. The patient,Adri George,58 y/o, was given written information regarding hospital policies, unit procedures and contact persons. Patient's smoking status: Current some day smoker. Vital Signs - 8 hr 09/22/18 19:10 09/22/18 20:00 09/22/18 21:56 Pulse Rate 74 78 74 Respiratory Rate 17 15 16 Blood Pressure Blood Pressure [Right Arm] 152/60 H 154/65 H 146/59 H Pulse Oximetry 97 100 09/22/18 23:05 09/23/18 00:15 Pulse Rate 71 71 Respiratory Rate 17 16 Blood Pressure 139/54 L Blood Pressure [Right Arm] 133/67 Pulse Oximetry 99 97
[2018-09-23 04:04] LABS: Prothrombin Time 11.5 SECONDS (10.1-12.7)
[2018-09-23 04:06] LABS: PTT Partial Thromboplastin Tim 29 SECONDS (26.4-36.2)
[2018-09-23 04:10] LABS: BUN Creatinine Ratio 22.5 (6-22); Blood Urea Nitrogen 18 mg/dL (7-17); Calcium 9.5 mg/dL (8.4-10.2); Carbon Dioxide 28 mmol/L (22-32); Chloride 103 mmol/L (98-107); Cholesterol 163 mg/dL (140-199); Estimated Glomerular Filt Rate > 60.0 mL/min (>60); Glucose 129 mg/dL (70-100); HDL Cholesterol 60 mg/dL (40-60); HEMOLYSIS < 15 (0-50); LDL Cholesterol Calculated 87 mg/dL (<100); Magnesium 2.1 mg/dL (1.6-2.3); Potassium 3.7 mmol/L (3.4-5.1); Sodium 141 mmol/L (137-145); Triglycerides 82 mg/dL (35-150)
[2018-09-23 04:24] LABS: Troponin I < 0.012 ng/mL (0.01-0.034)
[2018-09-23 04:42] LABS: Hemoglobin A1C% w Est Avg Glu 5.7 % (4.0-6.0)
[2018-09-23 05:50] LABS: Thyroid Stimulating Hormone 2.02 uIU/mL (0.47-4.68)
[2018-09-23] MEDS: PANTOPRAZOLE 20 MG TABLET PO (06:16)
[2018-09-23] MEDS: ACETAMINOPHEN 325 MG TABLET 650 MG PO (08:22)
[2018-09-23] MEDS: BECLOMETHASONE 40 MCG INH 10.6 GM 1 PUFF INH ×2 (09:07→18:04)
[2018-09-23] MEDS: LISINOPRIL 10 MG TABLET PO (09:56)
[2018-09-23] MEDS: LORATADINE 10 MG TABLET PO (09:56)
--- NOTE | 2018-09-23 13:26 | OT.IP.TRT ---
Occupational Therapy Treatment Note M2 OT-IP Current Condition Start: 09/23/18 13:03 Freq: Status: Active Protocol: Document 09/23/18 13:04 [facility] (Rec: 09/23/18 13:26 [facility] [id number]) Occupational Therapy Current Condition Current Condition Evaluation Date 09/23/18 Treatment Diagnosis Chest Pain Diagnosis Onset Date 09/22/18 M3 OT- IP Subjective and Pain Start: 09/23/18 13:03 Freq: Status: Active Protocol: Document 09/23/18 13:04 [facility] (Rec: 09/23/18 13:26 [facility] [id number]) OT- Subjective Occupational Therapy Visit Type Type Initial Evaluation Visit Start Time 11:25 Visit Stop Time 12:00 Total Visit Minutes 35 Occupational Therapy Visit Comments Patient Comments Pt wanting to go home after all medical testing done, states sister can come and take her home. OT Pain Assessment Pain When Pain Assessed At Rest Pain Present Pain Present Denied Pain M4 OT- IP ADL's Start: 09/23/18 13:03 Freq: Status: Active Protocol: Document 09/23/18 13:04 [facility] (Rec: 09/23/18 13:26 [facility] [id number]) OT EHB-Vbha-Dmqtvam Comments OT Self-Feeding Comments Pt states was independent and did not have any trouble with eating. OT ADL-Toileting General Evaluation Toileting Ability Independent Comments OT Toileting Comments Pt states has been been getting in and out of the bathroom on her own. M5 OT- IP IADL's Start: 09/23/18 13:03 Freq: Status: Active Protocol: Document 09/23/18 13:04 [facility] (Rec: 09/23/18 13:26 [facility] [id number]) OT-Instrumental Activities of Daily Living Home Safety Awareness Ability to Problem Solve Emergency Able to Problem Solve Situations Medication Management Medication Management Comments Pt states has pill organizer but at times forgets to take her medication until later in the evening per MRI SPECIALIST. M6 OT- IP Functional Cognition Start: 09/23/18 13:03 Freq: Status: Active Protocol: Document 09/23/18 13:04 [facility] (Rec: 09/23/18 13:26 [facility] [id number]) Cognitive Factors Limiting Selfcare Function Cognitive Ability Level of Alertness Alert Patient Orientation Name Age Birthday Month Date Year Day of Week Place Situation Attention Span Ability Capable of Focused Attention Capable of Sustained Attention Ability to Follow Commands Able to Follow Multi-Step Commands Memory Description Short Term Impaired Safety Awareness No Deficits Noted Problem Solving Ability No deficits Noted Executive Function Ability Unable to Remember Details Cognitive Tests ACL Pt scored 5.6 on ACL which implies may need prompts to think first about secondary effects of their actions or choices and for anticipating hazards. Tends to loose track of time but with prompt readily adapts. Cognitive Comments Cognitive Assessment Comments Pt able to correctly answer all home safety situations. Pt scored 82 with one cue on Lot[employer] Making Part B. Per [employer] [place] [employer] states a score of 180 seconds or greater implies person more apt to get into a car accident. OT- Vision and Hearing OT- Hearing Assessment OT- Hearing Assessment WFL M7 OT- IP Mobility and Balance Start: 09/23/18 13:03 Freq: Status: Active Protocol: Document 09/23/18 13:04 [facility] (Rec: 09/23/18 13:26 [facility] [id number]) OT- Bed Mobility Assessment Supine to Sit Supine to Sit Assist Independent OT-Transfer Assessment Sit to and From Stand Sit to and from Stand Independent Transfers Transfer Ability Independent Technique Transfer Destination Bed Devices Transfer Assistive Devices None Comments Mobility Comments Pt able to walk independently in the room and also able to safety manage IV pole. 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 Pt able to show good safety and balance. OT- Balance Assessment Sitting Balance and Reactions Static Sitting Balance Ability Normal Dynamic Sitting Balance Ability Normal Standing Balance and Reactions Static Standing Balance Ability Normal Dynamic Standing Balance Ability Good M8 OT- IP Objective Assessments Start: 09/23/18 13:03 Freq: Status: Active Protocol: Document 09/23/18 13:04 [facility] (Rec: 09/23/18 13:26 [facility] [id number]) OT Gross Range of Motion Upper Extremity Range of Motion Assessment Within Functional Limits OT Strength Comments Strength Comments RUE 4+/5, LUE 5/5, pt is right handed. OT-Muscle Tone Assessment Muscle Tone WNL Yes M9 OT- IP Assessment and Plan Start: 09/23/18 13:03 Freq: Status: Active Protocol: Document 09/23/18 13:04 [facility] (Rec: 09/23/18 13:26 [facility] [id number]) OT Summary Assessment and Plan Potential Rehabilitation Potential Excellent Analytic Complexity at Evaluation Low Summary OT Impairments Strength Functional Cognition Progress Towards Goals Progressing Toward Goals Assessment Summary Pt low complexity and has slight strength loss in right UE, and mild difficulty with STM for direction recall. pt states prior has difficulty with her memory and has to write things down often. Pt able to move independently in the room. Pt looking to go home once all medical testing are completely. Pt's daughter on her way from [place] to stay with pt. Goals OT-Other Goals Come up with ways to increase ability to recall medication management needs. Stimulate work activities along with activity tolerance to see if pt feels ready and capable of going back to work. Days to Meet Goals 1 Frequency of Treatment Frequency Of Treatment Once a Day Treatment Plan OT Treatment Plan Functional Cognition Training Functional Mobility Discharge Planning Discharge Recommendations OT Discharge Recommendations Home with Assistance
--- NOTE | 2018-09-23 13:42 | PM.PN.1 ---
Subjective Date Patient Seen: 09/23/18 Interval history: Adri George is a 58-year-old with a past medical history significant for hypertension, tobacco use disorder morbid obesity, osteoarthritis, and peripheral neuropathy who presented for expressive aphasia, slurred speech, sharp chest pain and hypertension. Overnight: The patient was stable and there were no acute events. She is in sinus rhythm on telemetry 70-80's without any arrhythmias. The patient is resting in bed comfortably today. She has no slurred speech or expressive aphasia. She has no upper lower extremity weakness. She reports she feels well. She does endorse left calf pain for the last month. She notes that at the end of July she was in a car for approximately 8 hrs. Discussed lifestyle modification in depth including : Smoking cessation, diet and exercise. She states that she is going to abstain from cigarettes altogether. She has no complaints overall. She denies headache, chest pain, shortness of breath, abdominal pain, nausea, vomiting, fever, chills, dysuria, diarrhea constipation. She is voiding without difficulty. She is up ambulating without assistance. Exam Vital Signs (past 8 hours): - 09/23/18 08:10 09/23/18 09:10 09/23/18 12:00 Temperature 97.6 F 97.5 F L Pulse Rate 78 78 68 Respiratory Rate 16 15 18 Blood Pressure 143/65 H 146/66 H Pulse Oximetry 97 97 97 Fraction of Inspired Oxygen 21 Oxygen Delivery Method Room Air Oxygen Flow Rate 0 Narrative Exam Narrative: General: Middle-aged obese female lying in bed and in no acute distress, well-developed, well-nourished, appropriately interactive. HEENT: Normocephalic, atraumatic. External ears without defect. Pupils equal, round, and reactive to light. Anicteric sclerae, moist conjunctivae, and no lid lag. Oropharynx free of erythema and cobble stoning with moist mucosa. Neck: Supple with full range of motion. No jugular venous distension. No bruits. No lymphadenopathy or thyromegaly. Cardiovascular: Regular rate and rhythm without murmurs, rubs, or gallops appreciated Pulmonary: Clear to auscultation bilaterally without crackles, wheezes, or rhonchi. Normal respiratory effort with no use of accessory muscles. Abdomen: Soft, obese, non-tender, nondistended. No hepatosplenomegaly or masses appreciated. Extremities: No clubbing, cyanosis, or edema. Mild left calf tenderness without edema, erythema or palpable cord. Skin: Normal temperature, turgor, and texture; no rash, ulcers, or subcutaneous nodules appreciated. Neurological: Cranial nerves grossly intact. Normal muscle strength, tone, and bulk. Reflexes, coordination, and sensory function within normal limits. No known gait impairment. Psychiatric: Normal mood and affect. Alert and oriented to person, place, and time. Objective Labs Result Diagrams: 09/22/18 14:25 09/23/18 03:22 Labs: Laboratory Results - last 24 hr 09/22/18 09/22/18 09/22/18 14:25 14:25 14:25 WBC 7.0 RBC 4.69 Hgb 13.4 Hct 40.7 MCV 86.8 MCH 28.6 MCHC 33.0 RDW 13.3 Plt Count 241 Neut % (Auto) 66.0 Lymph % (Auto) 24.2 L Wilson % (Auto) 7.8 Eos % (Auto) 1.4 L Baso % (Auto) 0.6 Neut # (Auto) 4600 Lymph # (Auto) 1700 Wilson # (Auto) 500 Eos # (Auto) 100 Baso # (Auto) 0 PT INR APTT D-Dimer 241 H Sodium 140 Potassium 4.5 Chloride 102 Carbon Dioxide 29 BUN 26 H Creatinine 0.70 Estimated GFR > 60.0 BUN/Creatinine Ratio 37.1 H Glucose 114 H Hemoglobin A1c Calcium 9.6 Magnesium Total Bilirubin 0.4 AST 28 ALT 32 Alkaline Phosphatase 67 Total Creatine Kinase 145 H CK-MB (CK-2) 2.66 H CK-MB (CK-2) Rel Index 1.8 Troponin I < 0.012 B-Natriuretic Peptide Total Protein 7.6 Albumin 4.7 Globulin 2.9 Albumin/Globulin Ratio 1.6 Triglycerides Cholesterol LDL Cholesterol, Calc HDL Cholesterol Lipase 45 TSH 09/22/18 09/23/18 09/23/18 16:39 00:21 00:21 WBC RBC Hgb Hct MCV MCH MCHC RDW Plt Count Neut % (Auto) Lymph % (Auto) Wilson % (Auto) Eos % (Auto) Baso % (Auto) Neut # (Auto) Lymph # (Auto) Wilson # (Auto) Eos # (Auto) Baso # (Auto) PT INR APTT D-Dimer Sodium Potassium Chloride Carbon Dioxide BUN Creatinine Estimated GFR BUN/Creatinine Ratio Glucose Hemoglobin A1c Calcium Magnesium Total Bilirubin AST ALT Alkaline Phosphatase Total Creatine Kinase CK-MB (CK-2) CK-MB (CK-2) Rel Index Troponin I < 0.012 < 0.012 B-Natriuretic Peptide < 100 Total Protein Albumin Globulin Albumin/Globulin Ratio Triglycerides Cholesterol LDL Cholesterol, Calc HDL Cholesterol Lipase TSH 09/23/18 09/23/18 09/23/18 03:22 03:22 03:22 WBC RBC Hgb Hct MCV MCH MCHC RDW Plt Count Neut % (Auto) Lymph % (Auto) Wilson % (Auto) Eos % (Auto) Baso % (Auto) Neut # (Auto) Lymph # (Auto) Wilson # (Auto) Eos # (Auto) Baso # (Auto) PT 11.5 INR 1.0 APTT 29 D-Dimer Sodium 141 Potassium 3.7 Chloride 103 Carbon Dioxide 28 BUN 18 H Creatinine 0.80 Estimated GFR > 60.0 BUN/Creatinine Ratio 22.5 H Glucose 129 H Hemoglobin A1c 5.7 Calcium 9.5 Magnesium 2.1 Total Bilirubin AST ALT Alkaline Phosphatase Total Creatine Kinase CK-MB (CK-2) CK-MB (CK-2) Rel Index Troponin I < 0.012 B-Natriuretic Peptide Total Protein Albumin Globulin Albumin/Globulin Ratio Triglycerides 82 Cholesterol 163 LDL Cholesterol, Calc 87 HDL Cholesterol 60 Lipase TSH 09/23/18 03:22 WBC RBC Hgb Hct MCV MCH MCHC RDW Plt Count Neut % (Auto) Lymph % (Auto) Wilson % (Auto) Eos % (Auto) Baso % (Auto) Neut # (Auto) Lymph # (Auto) Wilson # (Auto) Eos # (Auto) Baso # (Auto) PT INR APTT D-Dimer Sodium Potassium Chloride Carbon Dioxide BUN Creatinine Estimated GFR BUN/Creatinine Ratio Glucose Hemoglobin A1c Calcium Magnesium Total Bilirubin AST ALT Alkaline Phosphatase Total Creatine Kinase CK-MB (CK-2) CK-MB (CK-2) Rel Index Troponin I B-Natriuretic Peptide Total Protein Albumin Globulin Albumin/Globulin Ratio Triglycerides Cholesterol LDL Cholesterol, Calc HDL Cholesterol Lipase TSH 2.02 Assessment & Plan Plan: Assessment/Plan Narrative: 1. Probable acute TIA, present on admission. Active. -Patient presented with expressive aphasia and slurred speech which had resolved by time of arrival and left-sided sharp chest pain. -Suspected in the setting of hypertensive urgency. -CT brain demonstrated band-like hypo-attenuation of the sergey, which may be artefactual secondary to streak artifact from adjacent bony structures vs. a pontine infarct. Clinical correlation recommended. Consider follow-up brain MRI if there is continued clinical concern. -Continue neuro checks per stroke protocol. -Continue to monitor on telemetry closely. -Ordered MR Stroke Protocol, pending. -Ordered echocardiogram with bubble study, pending. -Passed swallow study in ED, may advance to cardiac diet. -Risk Stratify: A1C, FLP (goal LDL < 70) -Received ASA 324 mg in ED. Continue aspirin 81 mg daily. -Provided stroke education and discussed lifestyle modification including: Smoking cessation, diet and exercise 2. Acute atypical chest pain, present on admission. Resolved. -Cardiac risk factors include: Hypertension morbid obesity (BMI 40.9), increased age, smoking, and FHx of heart disease -EKG did not demonstrate any acute ischemic changes. Troponin and CK-MB normal at 0.012 and 2.66, respectively. -Continue to monitor closely on telemetry. -Initial troponin negative. Trend serial troponins x.3 -Risk Stratify: HLD, A1C -Ordered echocardiogram, pending. -Patient would benefit from an outpatient stress test -No NSAIDS, hold COMMUNICATIONS ASSISTANT meloxicam. -Differential diagnosis includes PE.However, less likely as there is no tachycardia, hypotension, syncope, JVD, hemoptysis, unilateral leg swelling or erythema, prior h/o PE/DVT, recent trauma or surgery, not on HRT, personal or family h/o cancer. Well?s Criteria for PE, score 3 (PE is #1 dx or equally likely), at moderate risk for PE -Ordered venous Doppler ultrasound of left lower extremity due to pain x 1 month. Low threshold for CTA chest as patient had left lower extremity calf pain and immobility for greater than 8 hr. 3. Hypertension, chronic, present on admission. Stable. -BP elevated on admission. Patient notes to be well controlled in ED. -continue to monitor blood pressure closely. -SBP goal < 130 and DBP goal < 90. -Continue lisinopril 10 mg daily. -Patient would benefit from outpatient sleep study to evaluate for obstructive sleep apnea. 4. Incidental right upper lobe pulmonary nodule, present on admission. -Patient has a history tobacco dependence. Current some day smoker. -Recommend outpatient CT follow-up to monitor. 5. Tobacco use disorder, present on admission. Stable. -Counseled the patient regarding smoking cessation. -Ordered Nicoderm patch as needed for nicotine withdrawal. 6. Anxiety and depression, present on admission. Stable. -Continue home buprion, fluoxetine, and trazadone. Disposition: Patient likely to discharge tomorrow pending TIA and chest pain workup. Quality VTE Deep Vein Thrombosis/Pulmonary Embolism Present on Admission: No
--- NOTE | 2018-09-23 14:25 | CM.IDA ---
Discharge Planning/Care Management CM Discharge Assessment Start: 09/23/18 14:17 Freq: Status: Active Protocol: Document 09/23/18 14:17 ARLETTE (Rec: 09/23/18 14:24 [facility] [id number]) Discharge Planning Assessment Assigned Pressfitter LATA Davis DPOA/Assigned Designee Name Kaity Batres dtr Contact Information [phone] Advance Directives? No History Provided By Patient Prior Living Arrangements House Household Members none Type of transporation used prior to Drives own vehicle admit Independent with ADL's Yes Is patient alert and oriented? Yes: forgetful per [employer] ,see their note Barriers to Discharge No Comment Likely DC home w/support from family. Met w/pt briefly this morning, she was eating lunch. 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 Will return for full DC assessment. Transportation Arrangement Family Additional Comment Following closely. Whiteboard Updated in Patient Room with Yes name and ext. # of Pressfitter Review Status In Process
[2018-09-23] MEDS: CYCLOBENZAPRINE 10 MG TABLET PO ×2 (14:36→21:20)
[2018-09-23] MEDS: GABAPENTIN 300 MG CAPSULE PO ×2 (14:36→21:20)
--- NOTE | 2018-09-23 14:51 | ST.IP.CME ---
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 Agreed to sit-up at edge of bed and participate in cognitive assessment. States most of her symptoms have resolved. Denies any difficulty with swallowing or speech. - Formal Assessment Results Patient scored 24/30 on the Bernard Cognitive Assessment. She was not able to complete the cube drawing. She incorrectly labeled the clock hands switching the short and long hands. She named 3/3 animals correctly, but stated camera before quickly self- correcting to camel. She scored 6/6 points on attention , 2/3 on language, 2/2 on abstraction and 6/6 on orientation. She scored 2/5 on delayed recall only recalling 2 out of 5 words with no cues . She recalled 1 of the 3 with a category cue and 1 of 2 with multiple choice cues. She did not recall the 5th word despite category and multiple choice cues. - Cognition Orientation Skill Level WNL Attention Skill Level WFL Problem Solving/Reasoning/Judgment Skill Level WFL Divergent Naming Skill Level WFL Auditory Math Skill Level WFL Clock Drawing Skill Level WFL - Memory Short Term Memory Skill Level Mildly Impaired - Findings Cognitive/Memory Impressions Results of assessment indicate patient presents with mild cognitive impairment specific to memory. She lives at home alone with her pets. She reports she has trouble remembering to take her pills each day despite using a pill box. She uses a bill pay chart , but often gets side tracked when trying to complete online bill pay. She uses a pen and paper at work to jot down notes, but does not use a calendar at home. Recommendations Recommendations Patient would benefit from training in the use of external memory aids to assist with memory of daily activities at home. Inpatient therapy to be provided during this hospital stay with potential need for continued services through outpatient speech therapy given patient's response to treatment at d/c. Without intervention, she is at risk for forgetting to pay bills and take her medication. Treatment Goals Short Term Goals Patient will participate in external memory aid training and recall memory aids following instruction.
--- NOTE | 2018-09-23 15:48 | PT.IIE ---
Physical Therapy Inpatient Evaluation/Re-Eval M1 PT/OT-IP Prior Functional Status Start: 09/23/18 13:03 Freq: NEEDED Status: Active Protocol: Document 09/23/18 13:04 [facility] (Rec: 09/23/18 13:26 [facility] [id number]) Medical Review Prior Functional Status Medical History Reviewed Yes Communication Independent. Mobility and Gait Independent and did not use a device. 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 Social History Household Members none Living Arrangements House Number of Floors (Floors) One Floor Number of Stairs To Enter/Railing? 2 steps and no rails. 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 In addition her daughter, Lanette driving from [place] to stay with her. M1 PT/OT-IP Prior Functional Status Start: 09/23/18 16:12 Freq: NEEDED Status: Active Protocol: Document 09/23/18 15:48 AB (Rec: 09/23/18 16:25 AB [id number]) Medical Review Prior Functional Status Medical History Reviewed Yes Communication able to make needs known Mobility and Gait pt stated that she is independent with all mobilities and ambulation without AD. Able to drive or use her motorcycle Activities of Daily Living and IADL's independent Social History Household Members none Living Arrangements House Number of Floors (Floors) One Floor Number of Stairs To Enter/Railing? 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 Additional Social History Comment pt works as a salesperson parts in the school M2 PT-IP Current Condition Start: 09/23/18 16:12 Freq: NEEDED Status: Active Protocol: Document 09/23/18 15:48 AB (Rec: 09/23/18 16:25 AB [email or web address]) Physical Therapy Current Condition Current Condition Evaluation Date 09/23/18 Treatment Diagnosis chest pain; brain TIA; difficulties in walking Onset Date 09/22/18 M3 PT-IP Subjective Start: 09/23/18 16:12 Freq: NEEDED Status: Active Protocol: Document 09/23/18 15:48 AB (Rec: 09/23/18 16:25 AB [email or web address]) Subjective Physical Therapy Visit Type Type Initial Evaluation Visit Start Time 15:48 Visit Stop Time 16:10 Total Visit Minutes 22 Number of SOCIAL WORK ASSISTANT Visits 0 Physical Therapy Visit Comments Patient Comments pt agreeable to do PT Patient Goals to go home; go back to work on thursday Therapy Pain Assessment Pain Present Pain Present Denied Pain M4 PT-IP Mobility and Gait Start: 09/23/18 16:12 Freq: NEEDED Status: Active Protocol: Document 09/23/18 15:48 AB (Rec: 09/23/18 16:25 AB [email or web address]) PT-Bed Mobility Assessment Supine to Sit Supine to Sit Independent Sit to Supine Sit to Supine Independent Scooting Scooting to Edge of Bed Independent Scooting Up and Down in Bed Independent PT-Transfer Assessment Sit to and From Stand Sit to and from Stand Independent Equipment Transfer Assistive Device None Gait Belt Orthotic/Prosthetic Devices or Brace: No Transfers Transfer Destination Chair Transfer Technique pt ambulated to the chair without AD Transfer Ability Level of Assist Independent Gait Assessment Gait Gait Assistance Required: Independent Distance (Feet) 250 Able to Maintain Weight Bearing Status Yes During Gait Assistive Devices Assistive Device None Gait Belt Orthotic/Prosthetic Devices or Brace: No Stair Climbing Assessment Evaluation Level of Assist On Stairs Independent Devices Stair Climbing Assistive Devices None Technique/Endurance Stair Climbing Direction Ascend and Descend Stair Climbing Technique Step Over Step Number of Steps Climbed 3 Query Text: Stair Climbing Set # Repetitions (reps) 1 PT-Balance Assessment Sitting Balance and Reactions Static Sitting Balance Ability Normal Dynamic Sitting Balance Ability Normal Standing Balance and Reactions Static Standing Balance Ability Good Dynamic Standing Balance Ability Good Device Used without AD Functional Assessments Functional Tests 5 Times Sit to Stand 10.43 sec Tinetti Balance and Gait Assessment 28 Other Functional Tests Performed pt score 28/28 with tinetti balance assessment and 10.43 sec for 5 sit to stand: relates to low fall risk M5 PT-IP Objective Assessments Start: 09/23/18 16:12 Freq: NEEDED Status: Active Protocol: Document 09/23/18 15:48 AB (Rec: 09/23/18 16:25 AB [email or web address]) Orientation Orientation/Cognition Level of Alertness Alert Orientation Name Age Birthday Month Date Year Day of Week Place Situation Language Function Ability No Deficits Noted Safety Awareness Understands Safety Issues Memory Description No Deficits Noted Gross Range of Motion Lower Extremity ROM Assessment Bilaterally Impaired Impairments has h/o bilateral TKA and bilateral knee flexion limited to ~ 70 deg Strength Lower Extremity Strength Assessment Within Functional Limits Sensation Assessment Sensation Gross Sensation WNL Muscle Tone Muscle Tone WNL Yes M6 PT-IP Treatment Start: 09/23/18 16:12 Freq: NEEDED Status: Active Protocol: Document 09/23/18 15:48 AB (Rec: 09/23/18 16:25 AB [email or web address]) Physical Therapy Treatment Education Education Provided Safety M7 PT-IP Assessment and Plan Start: 09/23/18 16:12 Freq: NEEDED Status: Active Protocol: Document 09/23/18 15:48 AB (Rec: 09/23/18 16:25 AB [email or web address]) PT Summary Assessment and Plan Potential Rehabilitation Potential Good Status of Condition at Evaluation Stable Summary Assessment Summary pt doing well with mobility and is independent. cleared pt to independently mobilize in her room. No further PT intervention indicated at this time. Goals Other Goals PT eval completed and pt is independent with mobility. Frequency of Treatment Frequency Of Treatment Discharge Recommendations To Nursing Amount of Assist Needed Independent Discharge Recommendations PT Discharge Recommendations Home
[2018-09-23] MEDS: MELATONIN 3 MG TABLET 6 MG PO (21:19)
[2018-09-23] MEDS: ATORVASTATIN 20 MG TABLET 40 MG PO (21:19)
[2018-09-23] MEDS: SODIUM CHLORIDE 0.9% FLUSH 10 ML IV (21:20)
[2018-09-24] MEDS: ACETAMINOPHEN 325 MG TABLET 650 MG PO (00:03)
[2018-09-24] MEDS: ASPIRIN EC 81 MG TABLET PO ×2 (01:20→08:27)
[2018-09-24 05:37] VITALS: PULSE 69; RESP 16; O2SAT 95
[2018-09-24] MEDS: BECLOMETHASONE 40 MCG INH 10.6 GM 1 PUFF INH (05:37)
[2018-09-24 05:52] VITALS: BP 140/78; PULSE 73; RESP 17; TEMP 36.5; O2SAT 97
[2018-09-24] MEDS: CYCLOBENZAPRINE 10 MG TABLET PO (06:05)
[2018-09-24] MEDS: PANTOPRAZOLE 20 MG TABLET PO (06:05)
--- NOTE | 2018-09-24 07:46 | OT.IP.EVAL ---
Occupational Therapy Inpatient Evaluation/Re-Eval M1 PT/OT-IP Prior Functional Status Start: 09/23/18 13:03 Freq: NEEDED Status: Active Protocol: Document 09/23/18 13:04 [facility] (Rec: 09/23/18 13:26 [facility] [id number]) Medical Review Prior Functional Status Medical History Reviewed Yes Communication Independent. Mobility and Gait Independent and did not use a device. 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 Social History Household Members none Living Arrangements House Number of Floors (Floors) One Floor Number of Stairs To Enter/Railing? 2 steps and no rails. 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 In addition her daughter, Lanette driving from [place] to stay with her. M1 PT/OT-IP Prior Functional Status Start: 09/23/18 16:12 Freq: NEEDED Status: Active Protocol: Document 09/23/18 15:48 AB (Rec: 09/23/18 16:25 AB [email or web address]) Medical Review Prior Functional Status Medical History Reviewed Yes Communication able to make needs known Mobility and Gait pt stated that she is independent with all mobilities and ambulation without AD. Able to drive or use her motorcycle Activities of Daily Living and IADL's independent Social History Household Members none Living Arrangements House Number of Floors (Floors) One Floor Number of Stairs To Enter/Railing? 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 M2 OT-IP Current Condition Start: 09/23/18 13:03 Freq: Status: Active Protocol: Document 09/23/18 13:04 [facility] (Rec: 09/23/18 13:26 [facility] [id number]) Occupational Therapy Current Condition Current Condition Evaluation Date 09/23/18 Treatment Diagnosis Chest Pain/left pontine CVA Diagnosis Onset Date 09/22/18 M3 OT- IP Subjective and Pain Start: 09/23/18 13:03 Freq: Status: Active Protocol: Document 09/23/18 13:04 [facility] (Rec: 09/23/18 13:26 [facility] [id number]) OT- Subjective Occupational Therapy Visit Type Type Initial Evaluation Visit Start Time 11:25 Visit Stop Time 12:00 Total Visit Minutes 35 Occupational Therapy Visit Comments Patient Comments Pt wanting to go home after all medical testing done, states sister can come and take her home. OT Pain Assessment Pain When Pain Assessed At Rest Pain Present Pain Present Denied Pain M4 OT- IP ADL's Start: 09/23/18 13:03 Freq: Status: Active Protocol: Document 09/23/18 13:04 [facility] (Rec: 09/23/18 13:26 [facility] [id number]) OT [id number] Comments OT Self-Feeding Comments Pt states was indepenent and did not have any trouble with eating. OT ADL-Toileting General Evaluation Toileting Ability Independent Comments OT Toileting Comments Pt states has been been getting in and out of the bathroom on her own. M5 OT- IP IADL's Start: 09/23/18 13:03 Freq: Status: Active Protocol: Document 09/23/18 13:04 [facility] (Rec: 09/23/18 13:26 [facility] [id number]) OT-Instrumental Activities of Daily Living Home Safety Awareness Ability to Problem Solve Emergency Able to Problem Solve Situations Medication Management Medication Management Comments Pt states has pill organizer but at times forget to take her medication until later in the evening per [facility]. M6 OT- IP Functional Cognition Start: 09/23/18 13:03 Freq: Status: Active Protocol: Document 09/23/18 13:04 [facility] (Rec: 09/23/18 13:26 [facility] [id number]) Cognitive Factors Limiting Selfcare Function Cognitive Ability Level of Alertness Alert Patient Orientation Name Age Birthday Month Date Year Day of Week Place Situation Attention Span Ability Capable of Focused Attention Capable of Sustained Attention Ability to Follow Commands Able to Follow Multi-Step Commands Memory Description Short Term Impaired Safety Awareness No Deficits Noted Problem Solving Ability No deficits Noted Executive Function Ability Unable to Remember Details Cognitive Tests ACL Pt scored 5.6 on ACL which implies may need prompts to think first about secondary effects of their actions or choices and for anticipating hazards. Tends to loose track of time but with prompt readily adapts. Cognitive Comments Cognitive Assessment Comments Pt able to correctly answer all home safety situations. Pt scored 82 with one cue on [place] [employer] B. Per [employer] states a score of 180 seconds or greater implies person more apt to get into a car accident. OT- Vision and Hearing OT- Hearing Assessment OT- Hearing Assessment WFL M7 OT- IP Mobility and Balance Start: 09/23/18 13:03 Freq: Status: Active Protocol: Document 09/23/18 13:04 [facility] (Rec: 09/23/18 13:26 [facility] [id number]) OT- Bed Mobility Assessment Supine to Sit Supine to Sit Assist Independent OT-Transfer Assessment Sit to and From Stand Sit to and from Stand Independent Transfers Transfer Ability Independent Technique Transfer Destination Bed Devices Transfer Assistive Devices None Comments Mobility Comments Pt able to walk independently in the room and also able to safety manage IV pole. 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 OT- Balance Assessment Sitting Balance and Reactions Static Sitting Balance Ability Normal Dynamic Sitting Balance Ability Normal Standing Balance and Reactions Static Standing Balance Ability Normal Dynamic Standing Balance Ability Good M8 OT- IP Objective Assessments Start: 09/23/18 13:03 Freq: Status: Active Protocol: Document 09/23/18 13:04 [facility] (Rec: 09/23/18 13:26 [facility] [id number]) OT Gross Range of Motion Upper Extremity Range of Motion Assessment Within Functional Limits OT Strength Comments Strength Comments RUE 4+/5, LUE 5/5, pt is right handed. OT-Muscle Tone Assessment Muscle Tone WNL Yes M9 OT- IP Assessment and Plan Start: 09/23/18 13:03 Freq: Status: Active Protocol: Document 09/23/18 13:04 [facility] (Rec: 09/23/18 13:26 [facility] [id number]) OT Summary Assessment and Plan Potential Rehabilitation Potential Excellent Analytic Complexity at Evaluation Low Summary OT Impairments Strength Functional Cognition Progress Towards Goals Progressing Toward Goals Assessment Summary Pt low complexity and has slight strength loss in right UE, and mild difficulty with STM for direction recall. Pt able to more independently in the room. Pt looking to go home once all medical testing are completely. Pt's daughter on her way from [place] to stay with pt. Goals OT-Other Goals Come up with ways to increase ability to recall medication management needs. Stimulate work activities along with activity tolerance to see if pt feels ready and capable of going back to work. Days to Meet Goals 1 Frequency of Treatment Frequency Of Treatment Once a Day Treatment Plan OT Treatment Plan Functional Cognition Training Functional Mobility Discharge Planning Discharge Recommendations OT Discharge Recommendations Home with Assistance
[2018-09-24 08:02] VITALS: BP 142/87; PULSE 76; RESP 16; TEMP 36.4; O2SAT 95
--- NOTE | 2018-09-24 08:18 | OT.IP.EVAL ---
Occupational Therapy Inpatient Evaluation/Re-Eval M1 PT/OT-IP Prior Functional Status Start: 09/23/18 13:03 Freq: NEEDED Status: Active Protocol: Document 09/23/18 13:04 [facility] (Rec: 09/23/18 13:26 [facility] [id number]) Medical Review Prior Functional Status Medical History Reviewed Yes Communication Independent. Mobility and Gait Independent and did not use a device. 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 Social History Household Members none Living Arrangements House Number of Floors (Floors) One Floor Number of Stairs To Enter/Railing? 2 steps and no rails. Home Environment Standard Height Toilet Tub/Shower Employment Status [employer] Employed Additional Social History Comment Pt states sister lives in [place] and currently driving by her home to assist to take ccare of her animals on her way to and from work in [place]. In addition her daughter, Lanette driving from [place] to stay with her. M1 PT/OT-IP Prior Functional Status Start: 09/23/18 16:12 Freq: NEEDED Status: Active Protocol: Document 09/23/18 15:48 [facility] (Rec: 09/23/18 16:25 [facility] [id number]) Medical Review Prior Functional Status Medical History Reviewed Yes Communication able to make needs known Mobility and Gait pt stated that she is independent with all mobilities and ambulation without AD. Able to drive or use her motorcycle Activities of Daily Living and IADL's independent Social History Household Members none Living Arrangements House Number of Floors (Floors) One Floor Number of Stairs To Enter/Railing? 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 M2 OT-IP Current Condition Start: 09/23/18 13:03 Freq: Status: Active Protocol: Document 09/23/18 13:04 [facility] (Rec: 09/23/18 13:26 [facility] [id number]) Occupational Therapy Current Condition Current Condition Evaluation Date 09/23/18 Treatment Diagnosis Chest Pain, Brain TIA Diagnosis Onset Date 09/22/18 M3 OT- IP Subjective and Pain Start: 09/23/18 13:03 Freq: Status: Active Protocol: Document 09/23/18 13:04 [facility] (Rec: 09/23/18 13:26 [facility] [id number]) OT- Subjective Occupational Therapy Visit Type Type Initial Evaluation Visit Start Time 11:25 Visit Stop Time 12:00 Total Visit Minutes 35 Occupational Therapy Visit Comments Patient Comments Pt wanting to go home after all medical testing done, states sister can come and take her home. OT Pain Assessment Pain When Pain Assessed At Rest Pain Present Pain Present Denied Pain M4 OT- IP ADL's Start: 09/23/18 13:03 Freq: Status: Active Protocol: Document 09/23/18 13:04 [facility] (Rec: 09/23/18 13:26 [facility] [id number]) OT [id number] Comments OT Self-Feeding Comments Pt states was indepenent and di not have any trouble with eating. OT ADL-Toileting General Evaluation Toileting Ability Independent Comments OT Toileting Comments Pt melody has been beenn getting in and out of the bathroom on her own. M5 OT- IP IADL's Start: 09/23/18 13:03 Freq: Status: Active Protocol: Document 09/23/18 13:04 [facility] (Rec: 09/23/18 13:26 [facility] [id number]) OT-Instrumental Activities of Daily Living Home Safety Awareness Ability to Problem Solve Emergency Able to Problem Solve Situations Medication Management Medication Management Comments Pt states has pill organizer but at times forget to take her medication until later in the evening per [employer]. M6 OT- IP Functional Cognition Start: 09/23/18 13:03 Freq: Status: Active Protocol: Document 09/23/18 13:04 [facility] (Rec: 09/23/18 13:26 [facility] [id number]) Cognitive Factors Limiting Selfcare Function Cognitive Ability Level of Alertness Alert Patient Orientation Name Age Birthday Month Date Year Day of Week Place Situation Attention Span Ability Capable of Focused Attention Capable of Sustained Attention Ability to Follow Commands Able to Follow Multi-Step Commands Memory Description Short Term Impaired Safety Awareness No Deficits Noted Problem Solving Ability No deficits Noted Executive Function Ability Unable to Remember Details Cognitive Tests ACL Pt scored 5.6 on ACL which implies may need prompts to think first about secondary effects of thier actions or choices and for anticipating hazzards. Tends to loose track of time but with prompt readily adapts. Cognitive Comments Cognitive Assessment Comments Pt able to correctly answer all home safety situations. Pt scored 82 with one cue on [place] Making Part B. Per [employer] states a score of 180 seconds or greater implies person more apt to get into a car accident. OT- Vision and Hearing OT- Hearing Assessment OT- Hearing Assessment WFL M7 OT- IP Mobility and Balance Start: 09/23/18 13:03 Freq: Status: Active Protocol: Document 09/23/18 13:04 [facility] (Rec: 09/23/18 13:26 [facility] [id number]) OT- Bed Mobility Assessment Supine to Sit Supine to Sit Assist Independent OT-Transfer Assessment Sit to and From Stand Sit to and from Stand Independent Transfers Transfer Ability Independent Technique Transfer Destination Bed Devices Transfer Assistive Devices None Comments Mobility Comments Pt able to walk independently in the room and also able to safety manage IV pole. 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 OT- Balance Assessment Sitting Balance and Reactions Static Sitting Balance Ability Normal Dynamic Sitting Balance Ability Normal Standing Balance and Reactions Static Standing Balance Ability Normal Dynamic Standing Balance Ability Good M8 OT- IP Objective Assessments Start: 09/23/18 13:03 Freq: Status: Active Protocol: Document 09/23/18 13:04 [facility] (Rec: 09/23/18 13:26 [facility] [id number]) OT Gross Range of Motion Upper Extremity Range of Motion Assessment Within Functional Limits OT Strength Comments Strength Comments RUE 4+/5, LUE 5/5, pt is right handed. OT-Muscle Tone Assessment Muscle Tone WNL Yes M9 OT- IP Assessment and Plan Start: 09/23/18 13:03 Freq: Status: Active Protocol: Document 09/23/18 13:04 [facility] (Rec: 09/23/18 13:26 [facility] [id number]) OT Summary Assessment and Plan Potential Rehabilitation Potential Excellent Analytic Complexity at Evaluation Low Summary OT Impairments Strength Functional Cognition Progress Towards Goals Progressing Toward Goals Assessment Summary Pt low complexity and has slight strength loss in right UE, and mild difficulty with STM for direction recall. Pt able to more independently in the room. Pt looking to go home once all medical testing are completely. Pt's daughter on her way from [place] to stay with pt. Goals OT-Other Goals Come up with ways to increase ability to recall medication management needs. Stimulate work activities along with activity tolerance to see if pt feels ready and capable of going back to work. Days to Meet Goals 1 Frequency of Treatment Frequency Of Treatment Once a Day Treatment Plan OT Treatment Plan Functional Cognition Training Functional Mobility Discharge Planning Discharge Recommendations OT Discharge Recommendations Home with Assistance
[2018-09-24] MEDS: buPROPion XL 150 MG TAB 450 MG PO (08:26)
[2018-09-24] MEDS: GABAPENTIN 300 MG CAPSULE PO (08:27)
[2018-09-24] MEDS: FLUoxetine 20 MG CAPSULE 60 MG PO (08:27)
[2018-09-24 08:28] VITALS: BP 142/87; PULSE 84
[2018-09-24] MEDS: LISINOPRIL 10 MG TABLET PO (08:28)
[2018-09-24] MEDS: LORATADINE 10 MG TABLET PO (08:29)
--- NOTE | 2018-09-24 08:50 | ST.IPTN ---
[employer] Treatment Note [employer] Treatment Note Start: 09/23/18 14:30 Freq: Status: Active Protocol: Document 09/24/18 08:44 [facility] (Rec: 09/24/18 08:49 [facility] [id number]) Speech Pathology Treatment Note Session Time Visit Start Time 08:30 Visit Stop Time 08:42 Total Visit Minutes 12 Setting Treatment Setting Acute Care Visit Type Note Type Treatment Note Subjective Identification Type Name Observations/Patient Presentation Patient present in room with multiple family members who drove in from [place]. Patient states she is hoping to discharge home today. Family will stay with patient for a while before going back to [place]. Chief Complaint(s) Cognitive Patient Knowledge/Awareness of [employer] Role Good in Treatment Parent/Caretake Knowledge/Awareness of Good [employer] Role in Treatment Objective Short Term Goals Patient will participate in external memory aid training and recall memory aids following instruction. Treatment Activities Patient and family education provided included written education of compensatory memory strategies. Discussed developing a morning routine to include taking medication. Also discussed utilizing a calendar at home to assist with recall of daily activities as well as birthdays and such. Patient and family verbalized understanding. Assessment Patient Response to Treatment Good Rehab Potential Good Assessment of Improvement Patient and family were both very receptive to recommendations and training. Prognosis is excellent given family support. Reviewed with Patient Home Exercise Program Patient/Caregiver Understanding Good Plan Therapeutic Contents Client Education Cognitive-Linguistic Training Provided Patient/Caregiver Instruction Other Comment Written handouts
--- NOTE | 2018-09-24 09:03 | OT.IP.TRT ---
Occupational Therapy Treatment Note M2 OT-IP Current Condition Start: 09/23/18 13:03 Freq: Status: Active Protocol: Document 09/23/18 13:04 [facility] (Rec: 09/23/18 13:26 [facility] [id number]) Occupational Therapy Current Condition Current Condition Evaluation Date 09/23/18 Treatment Diagnosis Chest Pain Diagnosis Onset Date 09/22/18 M3 OT- IP Subjective and Pain Start: 09/23/18 13:03 Freq: Status: Active Protocol: Document 09/24/18 08:57 [facility] (Rec: 09/24/18 09:03 [facility] [id number]) OT- Subjective Occupational Therapy Visit Type Type Treatment Note Visit Start Time 08:00 Visit Stop Time 08:15 Total Visit Minutes 15 Occupational Therapy Visit Comments Patient Comments Pt agreeable to go over some FMS and memory stradegies. Patient/Caregiver Goals To be able to go home today. OT Pain Assessment Pain When Pain Assessed At Rest Pain Present Pain Present Denied Pain M4 OT- IP ADL's Start: 09/23/18 13:03 Freq: Status: Active Protocol: Document 09/23/18 13:04 [facility] (Rec: 09/23/18 13:26 [facility] [id number]) OT [id number] Comments OT Self-Feeding Comments Pt states was indepenent and di not have any trouble with eating. OT ADL-Toileting General Evaluation Toileting Ability Independent Comments OT Toileting Comments Pt melody has been beenn getting in and out of the bathroom on her own. M5 OT- IP IADL's Start: 09/23/18 13:03 Freq: Status: Active Protocol: Document 09/23/18 13:04 [facility] (Rec: 09/23/18 13:26 [facility] [id number]) OT-Instrumental Activities of Daily Living Home Safety Awareness Ability to Problem Solve Emergency Able to Problem Solve Situations Medication Management Medication Management Comments Pt states has pill organizer but at times forget to take her medication until later in the evening per [employer]. M6 OT- IP Functional Cognition Start: 09/23/18 13:03 Freq: Status: Active Protocol: Document 09/23/18 13:04 [facility] (Rec: 09/23/18 13:26 [facility] [id number]) Cognitive Factors Limiting Selfcare Function Cognitive Ability Level of Alertness Alert Patient Orientation Name Age Birthday Month Date Year Day of Week Place Situation Attention Span Ability Capable of Focused Attention Capable of Sustained Attention Ability to Follow Commands Able to Follow Multi-Step Commands Memory Description Short Term Impaired Safety Awareness No Deficits Noted Problem Solving Ability No deficits Noted Executive Function Ability Unable to Remember Details Cognitive Tests ACL Pt scored 5.6 on ACL which implies may need prompts to think first about secondary effects of their actions or choices and for anticipating hazards. Tends to loose track of time but with prompt readily adapts. Cognitive Comments Cognitive Assessment Comments Pt able to correctly answer all home safety situations. Pt scored 82 with one cue on [place] [employer] B. Per [employer] states a score of 180 seconds or greater implies person more apt to get into a car accident. OT- Vision and Hearing OT- Hearing Assessment OT- Hearing Assessment WFL M7 OT- IP Mobility and Balance Start: 09/23/18 13:03 Freq: Status: Active Protocol: Document 09/23/18 13:04 [facility] (Rec: 09/23/18 13:26 [facility] [id number]) OT- Bed Mobility Assessment Supine to Sit Supine to Sit Assist Independent OT-Transfer Assessment Sit to and From Stand Sit to and from Stand Independent Transfers Transfer Ability Independent Technique Transfer Destination Bed Devices Transfer Assistive Devices None Comments Mobility Comments Pt able to walk independently in the room and also able to safety manage IV pole. 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 OT- Balance Assessment Sitting Balance and Reactions Static Sitting Balance Ability Normal Dynamic Sitting Balance Ability Normal Standing Balance and Reactions Static Standing Balance Ability Normal Dynamic Standing Balance Ability Good M8 OT- IP Objective Assessments Start: 09/23/18 13:03 Freq: Status: Active Protocol: Document 09/24/18 08:57 [facility] (Rec: 09/24/18 09:03 [facility] [id number]) OT- Coordination Assessment Comments Coordination Comments Noted pt states having a hard time to close her right hand versus left hand. Pt states prior has not been able to close her hands all the way and able to make 75% fist. Able to do gentle carpal mobs to increase AROM in fingers. Also went over strategies to help for finger to thumb opposition in order to brain picker coins, utensils, etc... Now pt able to brain picker smaller items from the table after being soon. M9 OT- IP Assessment and Plan Start: 09/23/18 13:03 Freq: Status: Active Protocol: Document 09/24/18 08:57 [facility] (Rec: 09/24/18 09:03 [facility] [id number]) OT Summary Assessment and Plan Potential Rehabilitation Potential Excellent Analytic Complexity at Evaluation Low Summary OT Impairments Coordination Functional Cognition Progress Towards Goals Progressing Toward Goals Assessment Summary Pt doing well today and plan per pt when doctor deems medically stable to go home with family. Educated family to allow pt to do things at home and assist if needed. Pt appears to be back to baseline for needs. Goals Days to Meet Goals 1 Frequency of Treatment Frequency Of Treatment Once a Day Treatment Plan OT Treatment Plan Discharge Planning Discharge Recommendations OT Discharge Recommendations Home with Assistance
--- NOTE | 2018-09-24 11:00 | PM.DS.1 ---
History of Present Illness Date Patient Seen: 09/22/18 Chief complaint: Chest Pain Narrative: Written by Macario Weldon: The patient is a 58-year-old female who presented to the ED on 09/22/2018 at approximately 1314 with sudden onset of chest pain. Symptom onset is acute, initially noted in the 1000 hour. At time of the event patient was at work. 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 Time of the event she was moving tables and are changing the trash. Patient does not note this to be a particularly strenuous activity. Pain is localized to the left aspect of the chest and was described as sharp and stabbing. It did not radiate to the back, extremities, neck or jaw. In the following hour the pain has worsened to the degree that was debilitating to the patient and she was not able to continue working. She felt short of breath at rest and with exertion. The pain was worsened with deep inspiration. There was some degree of disorientation. There was no change in vision, palpitations, dizziness, lightheadedness, abdominal pain, nausea, vomiting or diaphoresis. Patient then was evaluated by the school is a nurse, she recalls two BP readings: 170/? and 220/114. At that point EMS was summoned and patient was transferred to the ED for further evaluation. It is of importance to note, that earlier in the day at approximately 0800 the patient experienced an episode of dysarthria / slurred speech. It is not clear how long the episode lasted, but at least 1-2 minutes as patient decided not to talk altogether thereafter. Patient notes experiencing similar event in April of 2018. She reports having imaging of her carotid arteries and notes being told of a 90% stenosis of left ICA and 50% stenosis of the ICA. At that time she was placed on aspirin and statin therapy with which she has been compliant. Known to have history of HTN with reported SBP range in the 130/80 mmHg at home. Admits to snoring, but no prior evaluation for SONIA. In the past has had a stress test (30 yrs ago, for reasons she does not recall). No h/o an echocardiogram. Denies h/o heart disease, lung disease, stroke, or blood clots. 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 Tobacco dependence, currently less than half pack week. Denies alcohol and recreational drug use. Lives independently. Has 2 daughters. ED Work-UP CT head: band-like attenuation of the sergey, which may be artifactual secondary to streak artifact from adjacent bony structures versus a pontine infarct. CTA Head / Neck: - Bandlike hypoattenuation of the sergey, which may be artifactual secondary to streak artifact from adjacent bony structures versus a pontine infarct. Clinical correlation recommended. Consider followup brain MRI if there is continued clinical concern. 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 - Mild calcified and noncalcified plaque of the carotid bifurcations bilaterally. The bilateral cervical carotid and vertebral arteries appear patent. - Poor opacification of the origin of the right posterior cerebral artery from the basilar artery, without definite communication. This may be congenital/developmental with the right posterior cerebral artery receiving flow from the right posterior communicating artery, or represent an age-indeterminate occlusion. - 4 mm non-calcified pulmonary nodule of the anterior right upper lobe. Consider followup CT of the chest if the patient has a history of risk factors for development of lung malignancy such as a history of smoking. Discharge Providers Date of admission: 09/22/18 22:39 Primary care physician: Judy Montemayor PA-C Consults: 09/23/18 06:00 Consult to Discharge Planning Routine Comment: d/c planning 09/23/18 09:41 Consult to Occupational Therapy Evaluate & Treat Comment: Physician Instructions: Evaluate and treat Consult to Physical Therapy Evaluate & Treat Comment: Physician Instructions: Evaluate and Treat Consult to Speech Therapy Evaluate & Treat Comment: Physician Instructions: Evaluate and treat Discharge provider: [place] Sauceda DO Discharge Date: 09/24/18 Summary Discharge Diagnosis: 1. Probable acute TIA, present on admission. Resolved. 2. Acute atypical chest pain, likely secondary to hypertensive urgency, present on admission. Resolved. 3. Hypertensive urgency in setting of chronic hypertension, present on admission. Hypertensive urgency resolved prior to admission. 4. Incidental right upper lobe pulmonary nodule, present on admission. Presumed stable. 5. Tobacco use disorder, present on admission. Stable. 6. Anxiety and depression, present on admission. Stable. 7. Morbid obesity, chronic, present on admission. Stable. Hospital Course: Adri George is a 58-year-old with a past medical history significant for hypertension, tobacco use disorder morbid obesity, osteoarthritis, and peripheral neuropathy who presented for expressive aphasia, slurred speech, sharp chest pain and hypertension. 1. Probable acute TIA, present on admission. Resolved. -Patient presented with expressive aphasia and slurred speech which had resolved by time of arrival with accompanying left-sided sharp chest pain in the setting of hypertensive urgency. -CT brain demonstrated band-like hypo-attenuation of the sergey, which may be artefactual secondary to streak artifact from adjacent bony structures vs. a pontine infarct. Clinical correlation recommended. Consider follow-up brain MRI if there is continued clinical concern. -Continued neuro checks per stroke protocol. -Continued to monitor on telemetry closely. No arrhythmia or ectopy present. -MR stroke protocol demonstrated mild atherosclerotic irregularity involving the cavernous segments of the internal carotid arteries bilaterally causing mild multifocal stenoses. Recommend implementing lifestyle modification and stroke prophylaxis with aspirin and statin as not amenable to intervention as this is small-vessel disease. Otherwise, normal MR angiogram of the head and neck with no hemodynamically significant vascular stenosis or large vessel occlusion. -Echocardiogram demonstrated preserved ejection fraction 60-65%, no valvular heart disease, and no intra-arterial shunt to explain TIA symptoms. -Passed swallow study in ED and placed on cardiac diet. -Risk Stratify: Hemoglobin A1c 5.7% which is on the cusp of prediabetes for which I counseled the patient extensively on lifestyle modification including diet and exercise. Lipid panel was within normal limits, with LDL 87 and goal LDL < 70. Switched the patient from simvastatin to atorvastatin 40 mg daily at bedtime. -Received ASA 324 mg in ED. Continued aspirin 81 mg daily. -Provided stroke education and discussed lifestyle modification including: Smoking cessation, diet and exercise 2. Acute atypical chest pain, likely secondary to hypertensive urgency, present on admission. Resolved. -Cardiac risk factors include: Hypertension, morbid obesity (BMI 40.9), increased age, smoking, and family history of heart disease. -EKG did not demonstrate any acute ischemic changes. Troponin and CK-MB normal at 0.012 and 2.66, respectively. -Continued to monitor closely on telemetry. No arrhythmia or ectopy present. -Initial troponin negative. Trended serial troponins x 3 which were all negative. -Risk stratify as above. -Echocardiogram as above. -Recommend outpatient exercise versus pharmacological stress test. -Discontinued meloxicam as this increases risk of RI and CVA, as well as, GI ulcers in the setting of aspirin use. -Venous Doppler ultrasound of left lower extremity did not demonstrate DVT. Differential diagnosis includes PE. However, less likely as there is no tachycardia, hypotension, syncope, JVD, hemoptysis, unilateral leg swelling or erythema, prior h/o PE/DVT, recent trauma or surgery, not on HRT, personal or family h/o cancer. Well?s Criteria for PE, score 3 (PE is #1 dx or equally likely), at moderate risk for PE. 3. Hypertensive urgency in setting of chronic hypertension, present on admission. Hypertensive urgency resolved prior to admission. -BP elevated on admission 164/77. Patient reportedly had a systolic blood pressure of [address] of [address] prior to admission. -Continued to monitor blood pressure closely. -SBP goal < 130 and DBP goal < 90. -Increased lisinopril to 20 mg daily at time of discharge. May consider increasing further if needed for hypertensive control. -Patient would benefit from outpatient sleep study to evaluate for obstructive sleep apnea. 4. Incidental right upper lobe pulmonary nodule, present on admission. Presumed stable. -Patient has a history tobacco dependence. Current some day smoker. -Recommend outpatient CT follow-up to monitor. 5. Tobacco use disorder, chronic, present on admission. Stable. -Counseled the patient regarding smoking cessation. -Ordered Nicoderm patch as needed for nicotine withdrawal. 6. Anxiety and depression, chronic, present on admission. Stable. -Continued home buprion, fluoxetine, and trazadone. 7. Morbid obesity, chronic, present on admission. Stable. -BMI 40.9. -Counseled the patient extensively on lifestyle modification including: Smoking cessation, diet, and exercise. Exam Vital Signs (past 8 hours): - 09/24/18 05:37 09/24/18 05:52 09/24/18 08:02 Temperature 97.7 F 97.5 F L Pulse Rate 69 73 76 Respiratory Rate 16 17 16 Blood Pressure 140/78 142/87 H Pulse Oximetry 95 97 95 09/24/18 08:28 Temperature Pulse Rate 84 Respiratory Rate Blood Pressure 142/87 H Pulse Oximetry Fraction of Inspired Oxygen 21 Oxygen Delivery Method Room Air Oxygen Flow Rate 0 Narrative Exam Narrative: General: Middle-aged obese female lying in bed and in no acute distress, well-developed, well-nourished, appropriately interactive. HEENT: Normocephalic, atraumatic. External ears without defect. Pupils equal, round, and reactive to light. Anicteric sclerae, moist conjunctivae, and no lid lag. Oropharynx free of erythema and cobble stoning with moist mucosa. Neck: Supple with full range of motion. No jugular venous distension. No bruits. No lymphadenopathy or thyromegaly. Cardiovascular: Regular rate and rhythm without murmurs, rubs, or gallops appreciated Pulmonary: Clear to auscultation bilaterally without crackles, wheezes, or rhonchi. Normal respiratory effort with no use of accessory muscles. Abdomen: Soft, obese, non-tender, nondistended. No hepatosplenomegaly or masses appreciated. Extremities: No clubbing, cyanosis, or edema. Mild left calf tenderness without edema, erythema or palpable cord. Skin: Normal temperature, turgor, and texture; no rash, ulcers, or subcutaneous nodules appreciated. Neurological: Cranial nerves grossly intact. Normal muscle strength, tone, and bulk. Reflexes, coordination, and sensory function within normal limits. No known gait impairment. Psychiatric: Normal mood and affect. Alert and oriented to person, place, and time. Objective Labs Result Diagrams: 09/22/18 14:25 09/23/18 03:22 Discharge Plan Discharge Plan Patient Disposition: Home Discharge comment: You are being discharged home. Please follow up with your PCP, Dr. Montemayor, regarding your hospitalization in the next 1-2 weeks. Recommend that you have an outpatient stress test to ensure that your chest pain is not cardiac related. Continue aspirin 81 mg daily and atorvastatin 40 mg daily before bedtime which were prescribed and sent to your pharmacy for stroke prevention. Continue lifestyle modification including diet and exercise as discussed. Please abstain from smoking altogether. Discharge Med Rec/Prescriptions Prescriptions: New aspirin 81 mg Tablet,Delayed Release (Dr/Ec) 81 mg PO DAILY Qty: 30 RF: 0 atorvastatin 40 mg tablet 40 mg PO BEDTIME Qty: 30 RF: 0 Continue fluoxetine 20 mg Tablet 60 mg PO DAILY Qty: 0 RF: 0 omeprazole 20 mg Capsule,Delayed Release(Dr/Ec) 20 mg PO DAILY Qty: 0 RF: 0 bupropion HCl 150 mg Tablet Extended Release 24 Hr 450 mg PO QAM Qty: 0 RF: 0 cyclobenzaprine 10 mg Tablet 10 mg PO Q8H RF: 0 trazodone 50 mg Tablet 50 - 100 mg PO BEDTIME PRN (Reason: Sleep) RF: 0 hydrocodone-acetaminophen 5-325 mg Tablet 1 tab PO Q6H PRN (Reason: pain) RF: 0 fexofenadine 180 mg Tablet 180 mg PO DAILY RF: 0 lorazepam 0.5 mg Tablet 0.5 - 2 mg PO QPM PRN (Reason: panic or sleep) RF: 0 albuterol sulfate [ProAir HFA] 90 mcg/actuation Hfa Aerosol Inhaler 1 puff Inhalation PRN PRN (Reason: Shortness Of Breath) RF: 0 fluticasone 50 mcg/actuation Pride,Suspension 1 spray INTRANASAL Q4-6H RF: 0 beclomethasone dipropionate [Qvar RediHaler] 40 mcg/actuation Hfa Aerosol Breath Activated 1 puff INHALATION DIRECTED RF: 0 gabapentin 300 mg capsule 300 mg PO TID RF: 0 Changed lisinopril 10 mg Tablet 20 mg PO DAILY Qty: 0 RF: 0 Discontinued meloxicam 15 mg Tablet 15 mg PO DAILY PRN (Reason: pain) RF: 0 Follow up/Referrals: Judy Montemayor PA-C [Primary Care Provider] - (patient will schedule follow up with barry cortez [phone] ) Provider Discharge Instructions Diet: Carb-consistent/Diabetic, Low-fat, Low-sodium and Low-cholesterol Activity: Activity as tolerated Skin/Wound/Dressing Care Report to your healthcare provider any signs of infection, such as:: increased pain Visit Report/Discharge Packet Instructions: The Mediterranean Diet and Good Health, DI for Transient Ischemic Attack, DI for Atypical Chest Pain, Mediterranean Diet May Reduce the Risk of Stroke in People with High Risk o Visit Report Forms: Stroke Signs & Symptoms Discharge Data Primary Care Provider: Judy Montemayor Attending Provider: Macario Weldon Admit Date/Time: 09/22/18 22:39 Quality VTE Deep Vein Thrombosis/Pulmonary Embolism Present on Admission: No
--- NOTE | 2018-09-24 11:51 | PC.NURSE ---
Discharge instructions given to patient and family. She was able to dress independently, denied pain/nausea. VSS, All questions answered. She ambulated off unit independently - steady gait observed.
--- NOTE | 2018-09-24 14:41 | CM.DPNOTE ---
Met w/pt this morning, two dtrs and SINDI, also grand kids at bedside. Dtr Lanette here from [place] to assist pt at home. DC order in place for home, Dr Sauceda has suggested outpt stress test and close ongoing outpt f/u for pt. Pt feels confident about returning home and will be returning to work Thursday, Dr Sauceda aware and has cleared pt for return to work. Pt feels grateful today that her family has made themselves available to assist her as she transitions home. This INSURANCE CLAIMS SPECIALIST drafted a letter confirming pt's admission dates and need for home support for dtr Lanette/ FMLA. Signed by Dr Sauceda. P: DC home today w/supportive family. ARLETTE Discharge Planning/Care Management CM Discharge Assessment Start: 09/23/18 14:17 Freq: Status: Discharge Protocol: Document 09/23/18 14:17 ARLETTE (Rec: 09/23/18 14:24 ARLETTE [id number]) Discharge Planning Assessment Assigned Forepart Rounder LATA Davis DPOA/Assigned Designee Name Kaity Batres dtr Contact Information [phone] Advance Directives? No History Provided By Patient Prior Living Arrangements House Household Members none Type of transporation used prior to Drives own vehicle admit Independent with ADL's Yes Is patient alert and oriented? Yes: forgetful per RESIDENT CARE PROVIDER ,see their note Barriers to Discharge No Comment Likely DC home w/support from family. Met w/pt briefly this morning, she was eating lunch. 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 Will return for full DC assessment. Transportation Arrangement Family Additional Comment Following closely. Whiteboard Updated in Patient Room with Yes name and ext. # of Forepart Rounder Review Status In Process
== END 2018-09-24 11:45 | disposition home or self-care (01) ==
LOC: ED 19:46 → AC 22:41
PROVIDERS: Admitting Provider Nurse Practitioner Gerontology; Emergency Provider Nurse Practitioner Family; PCP Physician Assistant; Visit Provider Nurse Practitioner Gerontology
DX: R07.9 Chest pain, unspecified (principal); I10 Essential (primary) hypertension; F17.210 Nicotine dependence, cigarettes, uncomplicated; G45.9 Transient cerebral ischemic attack, unspecified; E66.01 Morbid (severe) obesity due to excess calories; Z68.41 Body mass index [BMI] 40.0-44.9, adult; I25.10 Atherosclerotic heart disease of native coronary artery without angina pectoris; M19.90 Unspecified osteoarthritis, unspecified site; G62.9 Polyneuropathy, unspecified; F41.9 Anxiety disorder, unspecified; F33.41 Major depressive disorder, recurrent, in partial remission; M54.9 Dorsalgia, unspecified; G89.29 Other chronic pain; F11.20 Opioid dependence, uncomplicated
CPT/HCPCS: 36415; 36591; 70450; 70496; 70498; 70553; 71045; 80048; 80053; 80061; 81003; 82550; 82553; 83036; 83690; 83735; 83880; 84443; 84484; 85025; 85379; 85610; 85730; 92507; 93005; 93010; 93306; 93971; 94640; 94760; 96125; 97127; 97161; 97165; 97530; 99284; 99285; G0378; A9579; Q9967

== ENCOUNTER 2019-01-28 13:35 | Emergency (ER) | payer OTHER, SELFPAY ==
[2018-09-23 00:05] VITALS: BMI 40.9
[2019-01-28 13:50] VITALS: BP 134/78; PULSE 82; RESP 16; TEMP 36.4; O2SAT 99; BMI 41.1
--- NOTE | 2019-01-28 13:55 | DI.RAD.S_ITS ---
PROCEDURE: XR WRIST RT MIN 3V INDICATIONS: pain after injury TECHNIQUE: 4 views of the wrist were acquired. COMPARISON: None. FINDINGS: Bones: No fractures or dislocations. No suspicious bony lesions. Scaphoid view: Scaphoid is intact. Soft tissues: No suspicious soft tissue calcifications. IMPRESSION: No fracture. No osseous lesion. If symptoms and/or clinical suspicion for pathology persists, further assessment with repeat radiographs (7-10 days) or advanced imaging (e.g. CT, MRI or bone scan) may be helpful. Dictated by: Jennifer Baker MD, PhD on 01/28/2019 at 14:10 Approved by: Jennifer Baker MD, PhD on 01/28/2019 at 14:11
[2019-01-28 16:02] VITALS: BP 138/67; PULSE 78; RESP 16; O2SAT 100
--- NOTE | 2019-01-28 16:21 | ED.UPPEXIN ---
HPI - Extremity Injury (Upper) <Eliza Lerma, [employer] - Last Filed: 01/28/19 18:45> General Chief Complaint: Extremity Injury, Upper Stated Complaint: right wrist injury at work Time Seen by Provider: 01/28/19 15:33 Source: patient Mode of arrival: ambulatory Limitations: no limitations History of Present Illness HPI narrative: The patient is a 58-year-old female who presents with chief complaint of wrist pain. She hurt her right wrist at work when she states she rotated the wrong way while lifting. She states that this pain is been going on since the or . She has tried Tylenol. She is unable take ibuprofen. She is not applied ice regularly. She denies any laceration or abrasion. She states she is right-hand dominant. Related Data Home Medications Medication Instructions Recorded Confirmed bupropion HCl 450 mg PO QAM #0 03/14/10 09/22/18 fluoxetine 60 mg PO DAILY #0 03/14/10 09/22/18 omeprazole 20 mg PO DAILY #0 03/14/10 01/28/19 albuterol sulfate [ProAir HFA] 1 puff INHALATION PRN PRN 09/22/18 09/22/18 beclomethasone dipropionate [Qvar 1 puff INHALATION DIRECTED 09/22/18 09/22/18 RediHaler] cyclobenzaprine 10 mg PO Q8H PRN 09/22/18 01/28/19 fexofenadine 180 mg PO DAILY 09/22/18 09/22/18 fluticasone propionate 1 spray INTRANASAL Q4-6H 09/22/18 09/22/18 gabapentin 300 mg PO TID 09/22/18 01/28/19 hydrocodone-acetaminophen 1 - 2 tab PO Q6H PRN 09/22/18 01/28/19 lorazepam 0.5 - 2 mg PO QPM PRN 09/22/18 09/22/18 trazodone 50 - 100 mg PO BEDTIME PRN 09/22/18 09/22/18 atorvastatin 10 mg PO DAILY 01/28/19 01/28/19 lisinopril 20 mg PO DAILY 01/28/19 01/28/19 Previous Rx's Medication Instructions Recorded aspirin 81 mg PO DAILY #30 tab 09/24/18 Allergies Allergy/AdvReac Type Severity Reaction Status Date / Time No Known Allergies Allergy Uncoded 12/16/17 12:16 Review of Systems <MAGALYS Rodriguez - Last Filed: 01/28/19 18:45> Review of Systems GENERAL: Denies chills, fatigue, malaise, fever, sweats. HEENT: Denies sinus pain, ear pain, sore throat, difficulty swallowing, dizziness. RESPIRATORY: Denies dyspnea, cough, wheezing, hemoptysis, sputum. CARDIOVASCULAR: Denies chest pain, palpitations, orthopnea, edema, GASTROINTESTINAL: Denies nausea, vomiting, abdominal pain, diarrhea, constipation, melena. : Denies dysuria, frequency, incontinence, hematuria, urinary retention. MUSCULOSKELETAL: See HPI SKIN: See HPI NEUROLOGIC: Denies weakness, headache, numbness, change in speech, confusion, seizures, incoordination. PSYCHIATRIC: No concerning psychosocial issues. 12 point review of systems is negative except for those stated above PFSH <MAGALYS Rodriguez - Last Filed: 01/28/19 18:45> Social History household members: none Smoking Status: Current every day smoker alcohol intake: current Social History household members: none Smoking Status: Current every day smoker alcohol intake: current Exam <MAGALYS Rodriguez - Last Filed: 01/28/19 18:45> Narrative Exam Narrative: GENERAL: This is a well-nourished, well-developed patient, in no acute distress HEAD: Atraumatic. Normocephalic. No temporal or scalp tenderness. EYES: Pupils equal round and reactive. Extraocular motions intact. No scleral icterus. No injection or drainage. ENT: Nose without bleeding, purulent drainage or septal hematoma. Throat without erythema, tonsillar hypertrophy or exudate. Uvula midline. Airway patent. NECK: Trachea midline. No JVD or lymphadenopathy. Supple, nontender, no meningeal signs. CARDIOVASCULAR: Regular rate and rhythm RESPIRATORY: No cough. No increased respiratory effort. No accessory muscle use. EXTREMITIES: Pain to palpation top of right wrist. Able do thumbs, thumbs down, a okay sign. Able to pronate and supinate right wrist. Able to extend right his, decreased flexion right wrist. Positive radial pulse. BACK: Nontender without deformity or crepitance. No flank tenderness. NEURO: No laceration abrasion or contusion noted right wrist SKIN: No laceration abrasion or ecchymosis noted right wrist Initial Vital Signs Initial Vital Signs: Vital Signs Temperature 97.5 F L 01/28/19 13:50 Pulse Rate 82 01/28/19 13:50 Respiratory Rate 16 01/28/19 13:50 Blood Pressure 134/78 01/28/19 13:50 Pulse Oximetry 99 01/28/19 13:50 <Eliza Valdez DO - Last Filed: 01/28/19 19:12> Initial Vital Signs Initial Vital Signs: Vital Signs Temperature 97.5 F L 01/28/19 13:50 Pulse Rate 82 01/28/19 13:50 Respiratory Rate 16 01/28/19 13:50 Blood Pressure 134/78 01/28/19 13:50 Pulse Oximetry 99 01/28/19 13:50 Course <MAGALYS Rodriguez - Last Filed: 01/28/19 18:45> Orders Ordered: ED Orders 01/28/19 13:55 XR wrist RT min 3V Stat Vital Signs - 8 hr 01/28/19 13:50 01/28/19 16:02 Temperature 97.5 F L Pulse Rate 82 78 Respiratory Rate 16 16 Blood Pressure 134/78 Blood Pressure [Left Arm] 138/67 Pulse Oximetry 99 100 <Eliza Valdez DO - Last Filed: 01/28/19 19:12> Orders Ordered: ED Orders 01/28/19 13:55 XR wrist RT min 3V Stat Vital Signs - 8 hr 01/28/19 13:50 01/28/19 16:02 Temperature 97.5 F L Pulse Rate 82 78 Respiratory Rate 16 16 Blood Pressure 134/78 Blood Pressure [Left Arm] 138/67 Pulse Oximetry 99 100 MDM - Extremity Injury (Upper) <MAGALYS Rodriguez Last Filed: 01/28/19 18:45> Imaging Data Wrist x-ray: Radiologist's impression: [address] [address] XRay Report Signed Patient: Adri George LMR#: [id number] : 1960Acct:[id number] Age/Sex: 58 / FDate of Service: 01/28/19 Loc: ED Accession Number: [id number] Procedure: XR wrist RT min 3V Ordering Provider: Eliza Valdez D.O. PROCEDURE: XR WRIST RT MIN 3V INDICATIONS: pain after injury TECHNIQUE: 4 views of the wrist were acquired. COMPARISON: None. FINDINGS: Bones: No fractures or dislocations. No suspicious bony lesions. Scaphoid view: Scaphoid is intact. Soft tissues: No suspicious soft tissue calcifications. IMPRESSION: No fracture. No osseous lesion. If symptoms and/or clinical suspicion for pathology persists, further assessment with repeat radiographs (7-10 days) or advanced imaging (e.g. CT, MRI or bone scan) may be helpful. Dictated by: Jennifer Baker MD, PhD on 01/28/2019 at 14:10 Approved by: Jennifer Baker MD, PhD on 01/28/2019 at 14:11 [facility] Narrative Medical decision making narrative: The patient is a 58-year-old female who presents with a chief complaint of wrist pain after a work injury. She has a negative x-ray. She does have noted decreased range of motion. She is neurovascular intact. Encouraged rest ice compression elevation as well as [id number] pain medications as needed and able. Patient already states that she has a brace at home so we do not need to give her another one here. Encouraged follow-up with primary care provider as well as L and I provider. L and I paperwork filled out. No questions or concerns upon discharge. Discussed return precautions to emergency department. Discharge Plan Departure Patient Disposition: Home Clinical Impression: Sprain and strain of wrist, Decreased range of motion Discharge Date/Time: 01/28/19 16:34 Interventions: ED Discharge Assessment Last Done: 01/28/19 16:34 Instructions: DI for Wrist Sprain, How To Perform RICE (Rest, Ice, Compress, Elevate) Activity Restrictions/Additional Instructions: Your x-ray shows no acute fractures. Please follow up with primary care provider or a L and I provider. Please use rest ice compression elevation. Come back to the emergency department for any acute concerns such as chest pain shortness of breath concern of heart attack or stroke. Prescriptions: No Action fluoxetine 20 mg Tablet 60 mg PO DAILY Qty: 0 RF: 0 omeprazole 20 mg Capsule,Delayed Release(Dr/Ec) 20 mg PO DAILY Qty: 0 RF: 0 bupropion HCl 150 mg Tablet Extended Release 24 Hr 450 mg PO QAM Qty: 0 RF: 0 cyclobenzaprine 10 mg Tablet 10 mg PO Q8H PRN (Reason: Muscle Spasm) RF: 0 trazodone 50 mg Tablet 50 - 100 mg PO BEDTIME PRN (Reason: Sleep) RF: 0 hydrocodone-acetaminophen 5-325 mg Tablet 1 - 2 tab PO Q6H PRN (Reason: pain) RF: 0 fexofenadine 180 mg Tablet 180 mg PO DAILY RF: 0 lorazepam 0.5 mg Tablet 0.5 - 2 mg PO QPM PRN (Reason: panic or sleep) RF: 0 albuterol sulfate [ProAir HFA] 90 mcg/actuation Hfa Aerosol Inhaler 1 puff Inhalation PRN PRN (Reason: Shortness Of Breath) RF: 0 fluticasone propionate 50 mcg/actuation [place],Suspension 1 spray INTRANASAL Q4-6H RF: 0 beclomethasone dipropionate [Qvar RediHaler] 40 mcg/actuation Hfa Aerosol Breath Activated 1 puff INHALATION DIRECTED RF: 0 gabapentin 300 mg capsule 300 mg PO TID RF: 0 aspirin 81 mg Tablet,Delayed Release (Dr/Ec) 81 mg PO DAILY Qty: 30 RF: 0 atorvastatin 10 mg tablet 10 mg PO DAILY RF: 0 lisinopril 20 mg tablet 20 mg PO DAILY RF: 0 Referrals: Judy Mnotemayor PA-C [Primary Care Provider] - <Eliza Valdez DO - Last Filed: 01/28/19 19:12> Cosign ED Attending Cosignature Attestation: I was immediately available in the department for consultation. This documentation has been reviewed and I agree with assessment and plan. Supervised by Eliza Valdez DO
== END 2019-01-28 16:34 | disposition home or self-care (01) ==
PROVIDERS: Emergency Provider Nurse Practitioner Family; PCP Physician Assistant
DX: S63.501A Unspecified sprain of right wrist, initial encounter (principal); Y99.0 Civilian activity done for income or pay
CPT/HCPCS: 73110; 99282; 99283